=== PATIENT | female | born 1935 | race Caucasian/White ===

== ENCOUNTER 2016-07-10 15:40 | Outpatient (CLI) | payer OTHER, MEDICAID ==
[~2016-07-10 15:40] MED LIST: AMLO10TA88 PO; ASPI325T2 PO; LISI-600 PO; METO25TA6 PO; NITRO; OMEP20CA10 PO
[2016-07-10 16:23] LABS: BILIRUBIN,URINE NEGATIVE (NEGATIVE); CLARITY/URINE SL HAZY (CLEAR); COLOR,URINE YELLOW (YELLOW); GLUCOSE,URINE NEGATIVE (NEGATIVE); KETONES,URINE NEGATIVE (NEGATIVE); LEUKOCYTE ESTERASE ,URINE 1+ (NEGATIVE); NITRITE, URINE NEGATIVE (NEGATIVE); PROTEIN URINE NEGATIVE (NEGATIVE); UROBILINOGEN,URINE 0.2 (0.2-1.0)
[2016-07-10 16:56] LABS: BLOOD, URINE TRACE (NEGATIVE)
[2016-07-10 17:11] LABS: RBC,URINE NONE SEEN /HPF (0-3)
[2016-07-10 17:13] LABS: BACTERIA,URINE MANY /HPF (None Seen); MUCUS,URINE None Seen /LPF (None Seen)
== END 2016-07-10 16:30 | disposition home or self-care (01) ==
LOC: SLB 15:40
PROVIDERS: ATTEND Internal Medicine
DX: N39.0 Urinary tract infection, site not specified (principal)
CPT/HCPCS: 81000-TC; 87086

== ENCOUNTER 2017-07-15 09:52 | Outpatient (CLI) | payer OTHER, MEDICAID | END 2017-07-15 19:32 | disposition home or self-care (01) | LOC: SLB 09:52 | PROVIDERS: ATTEND Internal Medicine | DX: N39.0 Urinary tract infection, site not specified (principal) | CPT/HCPCS: 87086; 87186-TC ==

== ENCOUNTER 2017-10-29 09:42 | Outpatient (CLI) | payer OTHER, MEDICAID ==
[~2017-10-29 09:42] MED LIST changes: +ASPI-858 PO; -ASPI325T2 PO
== END 2017-10-29 19:09 | disposition home or self-care (01) ==
LOC: SRD 09:42
PROVIDERS: ATTEND Internal Medicine
DX: M47.897 Other spondylosis, lumbosacral region (principal); M41.86 Other forms of scoliosis, lumbar region; M48.061 Spinal stenosis, lumbar region without neurogenic claudication; I70.0 Atherosclerosis of aorta; I70.293 Other atherosclerosis of native arteries of extremities, bilateral legs; I10 Essential (primary) hypertension
CPT/HCPCS: 72110; 93923

== ENCOUNTER 2019-01-05 15:22 | Inpatient (IN) | payer OTHER, MEDICAID ==
[~2019-01-05] VITALS: Ht 157.5 cm; Wt 73.0 kg
[~2019-01-05 15:22] MED LIST changes: -OMEP20CA10 PO; +OMEP20CA11 PO
[2019-01-05] MEDS ORDERED: NACL 0.9% 1,000 ML IV ONE ×2 (15:30→17:30)
[2019-01-05] MEDS ORDERED: ACETAMINOPHEN 500 MG TABLET PO ONE (15:30)
[2019-01-05] MEDS ORDERED: ONDANSETRON HCL 4 MG/2 ML VIAL IVP ONE ×2 (15:45→18:30)
[2019-01-05 16:53] LABS: BASOPHILS % (AUTO) 0.2 % (0.0-2.0); EOSINOPHILS % (AUTO) 0.2 % (0.0-4.0); HEMATOCRIT 36.7 % (36-48); HEMOGLOBIN 11.8 g/dL (12.0-16.0); LYMPHOCYTES # (AUTO) 0.2 K/uL (1.0-5.5); LYMPHOCYTES % (AUTO) 4.7 % (20.5-51.5); MEAN CORPUSCULAR HEMOGLOBIN 29 pg (27-31); MEAN CORPUSCULAR HGB CONC 32 % (32-36); MEAN CORPUSCULAR VOLUME 89 fL (79.0-98.0); MONOCYTES % (AUTO) 0.5 % (1.7-9.3); NEUTROPHILS # (AUTO) 4.5 K/uL (1.8-7.7); NEUTROPHILS % (AUTO) 94.4 % (40.0-70.0); PLATELET COUNT (AUTO) 135 K/uL (130-430); RED BLOOD CELL COUNT(AUTO) 4.13 MIL/uL (4.2-6.2); RED CELL DISTRIBUTION WIDTH 22.3 % (9.0-15.0); WHITE BLOOD COUNT (AUTO) 4.8 K/uL (4.8-10.8)
[2019-01-05 17:05] LABS: ANION GAP 11 (5-15); CALCIUM 8.3 mg/dL (8.4-11.0); CHLORIDE 109 mmol/L (98-107); CREATININE 1.59 mg/dL (0.55-1.30); GLUCOSE 109 mg/dL (70-99); POTASSIUM 3.9 mmol/L (3.5-5.1); SODIUM SERUM 141 mmol/L (136-145); UREA NITROGEN, BLOOD 26 mg/dL (8-21)
[2019-01-05 17:16] LABS: ALANINE AMINOTRANSFERASE 20 U/L (12-78); ALBUMIN 3.1 g/dL (3.4-4.8); ASPARTATE AMINOTRANSFERASE 27 U/L (10-37); TOTAL BILIRUBIN 0.5 mg/dL (0.0-1.0)
[2019-01-05 17:58] LABS: BILIRUBIN,URINE NEGATIVE (NEGATIVE); BLOOD, URINE 2+ (NEGATIVE); CLARITY/URINE CLOUDY (CLEAR); COLOR,URINE YELLOW (YELLOW); GLUCOSE,URINE NEGATIVE (NEGATIVE); KETONES,URINE NEGATIVE (NEGATIVE); LEUKOCYTE ESTERASE ,URINE 3+ (NEGATIVE); NITRITE, URINE NEGATIVE (NEGATIVE); PH,URINE 5.5 (5.0-8.0); PROTEIN URINE 1+ (NEGATIVE); UROBILINOGEN,URINE 0.2 (0.2-1.0)
[2019-01-05 18:28] LABS: BACTERIA,URINE MANY /HPF (None Seen); MUCUS,URINE None Seen /LPF (None Seen); WBC,URINE >100 /HPF (0-3)
[2019-01-05] MEDS ORDERED: ASPIRIN 325 MG TABLET PO ONE (18:30)
[2019-01-05] MEDS ORDERED: MORPHINE 4 MG/ML INJ. SYRINGE IVP ONE (18:30)
[2019-01-05] MEDS ORDERED: cefTRIAXone 1 GM IVPB PREMIX 50 ML IV ONE (18:30)
[2019-01-05] MEDS ORDERED: PROPOFOL 200MG/ 20ML VIAL (DIPRIVAN) IV ONE (19:30)
[2019-01-05] MEDS ORDERED: fentaNYL CITRATE/PF 100 MCG/2 ML AMP IVP ONE (19:30)
[2019-01-05] MEDS ORDERED: LR 1,000 ML IV.SOLN IV ONE (19:30)
[2019-01-05] MEDS ORDERED: SEVOFLURANE 15 MIN GAS INH ONE (19:30)
[2019-01-05] MEDS ORDERED: MIDAZOLAM HCL 5 MG/5 ML VIAL IVP ONE (19:30)
[2019-01-05] MEDS ORDERED: NS IRRIG SOLN 1000 ML IR ONE (19:30)
[2019-01-05 19:41] VITALS: BP_SYST 109
[2019-01-05] MEDS ORDERED: FLU VACC TS2019(65UP)/MF59C/PF 45 MCG/0.5 ML SYRINGE I.M. PRN (20:15)
[2019-01-05] MEDS ORDERED: LEVOFLOXACIN 250 MG/D5W 50 ML IV SCH (21:45)
[2019-01-05] MEDS ORDERED: OSELTAMIVIR PHOSPHATE 75 MG CAPSULE PO ONE (21:45)
[2019-01-05] MEDS ORDERED: ACETAMINOPHEN 650 MG SUPP.RECT RC PRN (22:00)
[2019-01-05] MEDS ORDERED: ZOLPIDEM TARTRATE 5 MG TABLET PO PRN (22:00)
[2019-01-05] MEDS ORDERED: PANTOPRAZOLE SODIUM 40 MG/VIAL (PROTONIX) IVP SCH (22:00)
[2019-01-05] MEDS ORDERED: ENOXAPARIN SODIUM 40 MG/0.4 ML SYRINGE SUBCUT ONE (22:15)
[2019-01-05] MEDS ORDERED: LEVOFLOXACIN 250 MG/D5W 50 ML IV ONE (22:20)
[2019-01-05] MEDS ORDERED: *HEPARIN PER PHARMACY XX ONE (23:15)
[2019-01-05 23:16] LABS: PROTHROMBIN TIME 10.4 SECS (9.5-12.5)
[2019-01-05] MEDS: NACL 0.9% 1,000 ML IV SCH (23:24)
[2019-01-06 00:03] VITALS: BP_SYST 95
[2019-01-06] MEDS ORDERED: *HEPARIN PER PHARMACY XX PRN (01:00)
[2019-01-06] MEDS: traMADol HCL HCL 50 MG TABLET (ULTRAM) PO PRN (01:15)
[2019-01-06] MEDS ORDERED: HEPARIN SODIUM,PORCINE 5000 UNITS/ML VIAL IV SCH (02:00)
[2019-01-06] MEDS: HEPARIN 25,000 UNITS/D5W 250mL PREMIX IV PRN ×3 (02:07→16:02)
[2019-01-06] MEDS: NACL 0.9% 1,000 ML IV SCH ×3 (05:03→17:46)
[2019-01-06] MEDS ORDERED: HEPARIN SODIUM,PORCINE 3000 UNITS/0.6 ML BOLUS IVP PRN (07:00)
[2019-01-06] MEDS ORDERED: HEPARIN SODIUM,PORCINE 2000 UNITS/0.4 ML BOLUS IVP PRN (07:00)
[2019-01-06 08:00] VITALS: BP_SYST 86
[2019-01-06 08:28] LABS: HEMATOCRIT 30.9 % (36-48); HEMOGLOBIN 10.1 g/dL (12.0-16.0); MEAN CORPUSCULAR HEMOGLOBIN 28 pg (27-31); MEAN CORPUSCULAR HGB CONC 33 % (32-36); MEAN CORPUSCULAR VOLUME 87 fL (79.0-98.0); PLATELET COUNT (AUTO) 133 K/uL (130-430); RED BLOOD CELL COUNT(AUTO) 3.56 MIL/uL (4.2-6.2); RED CELL DISTRIBUTION WIDTH 22.5 % (9.0-15.0); WHITE BLOOD COUNT (AUTO) 28.9 K/uL (4.8-10.8)
[2019-01-06] MEDS: PANTOPRAZOLE SODIUM 40 MG/VIAL (PROTONIX) IVP SCH (08:43)
[2019-01-06] MEDS: ASPIRIN 325 MG TABLET PO SCH (08:44)
[2019-01-06] MEDS: LISINOPRIL 20 MG TABLET PO SCH (08:46)
[2019-01-06 08:51] LABS: ALANINE AMINOTRANSFERASE 39 U/L (12-78); ALBUMIN 2.2 g/dL (3.4-4.8); ANION GAP 6 (5-15); ASPARTATE AMINOTRANSFERASE 45 U/L (10-37); CALCIUM 7.2 mg/dL (8.4-11.0); CHLORIDE 111 mmol/L (98-107); CHOLESTEROL 128 mg/dL (<200); CREATININE 1.44 mg/dL (0.55-1.30); GLUCOSE 107 mg/dL (70-99); HDL CHOLESTEROL 45 mg/dL (>55); LDL CHOLESTEROL 81 mg/dL (<100); LIPASE 92 U/L (73-393); POTASSIUM 4.2 mmol/L (3.5-5.1); SODIUM SERUM 137 mmol/L (136-145); TOTAL BILIRUBIN 0.5 mg/dL (0.0-1.0); TRIGLYCERIDES 29 mg/dL (30-150); UREA NITROGEN, BLOOD 28 mg/dL (8-21)
[2019-01-06] MEDS ORDERED: PANTOPRAZOLE SODIUM 40 MG TAB PO SCH (09:00)
[2019-01-06] MEDS ORDERED: OSELTAMIVIR PHOSPHATE 75 MG CAPSULE PO SCH (09:00)
[2019-01-06] MEDS ORDERED: cefTRIAXone 1 GM in D5W 50 ML IV SCH ×2 (09:00→21:00)
[2019-01-06 10:06] LABS: BAND % (MANUAL) 33 % (0-6); BASOPHILS % (MANUAL) 0 % (0-2); EOSINOPHILS % (MANUAL) 0 % (0-7); LYMPHOCYTES % (MANUAL) 5 % (20-46); METAMYELOCYTES % 3 % (0-0); MONOCYTES % (MANUAL) 5 % (0-11); MYELOCYTES % 1 % (0-0)
[2019-01-06] MEDS ORDERED: NACL 0.9% 1,000 ML IV ONE (11:15)
[2019-01-06 12:00] VITALS: BP_SYST 85
[2019-01-06 12:06] LABS: ANION GAP 10 (5-15); CALCIUM 7.3 mg/dL (8.4-11.0); CHLORIDE 110 mmol/L (98-107); CREATININE 1.39 mg/dL (0.55-1.30); GLUCOSE 109 mg/dL (70-99); POTASSIUM 4.2 mmol/L (3.5-5.1); SODIUM SERUM 141 mmol/L (136-145); UREA NITROGEN, BLOOD 28 mg/dL (8-21)
[2019-01-06 12:21] LABS: TOTAL IRON BIND. CAPACITY 207 ug/dL (250-450)
[2019-01-06] MEDS ORDERED: GENTAMICIN 80 MG/50 ML IV ONE (13:15)
[2019-01-06] MEDS ORDERED: NS IV ONE (13:15)
[2019-01-06] MEDS ORDERED: TAMSULOSIN HCL 0.4 MG CAP PO ONE (13:30)
[2019-01-06 15:38] VITALS: BP_SYST 94
[2019-01-06 17:06] VITALS: BP_SYST 111
[2019-01-06] MEDS ORDERED: fentaNYL CITRATE/PF 100 MCG/2 ML AMP IVP PRN ×2 (20:15)
[2019-01-06] MEDS ORDERED: ONDANSETRON HCL 4 MG/2 ML VIAL IVP PRN (20:15)
[2019-01-06] MEDS ORDERED: ENOXAPARIN SODIUM 40 MG/0.4 ML SYRINGE SUBCUT SCH (21:00)
[2019-01-06] MEDS: METOPROLOL TARTRATE 25 MG TABLET PO SCH (21:00)
[2019-01-06] MEDS: TAMSULOSIN HCL 0.4 MG CAP PO SCH (21:00)
[2019-01-06 21:25] VITALS: BP_SYST 107
[2019-01-06] MEDS: MEROPENEM 1 GM in NS 100 ML IV SCH (22:28)
[2019-01-07] MEDS: NACL 0.9% 1,000 ML IV SCH ×4 (00:26→20:24)
[2019-01-07 08:00] VITALS: BP_SYST 118
[2019-01-07] MEDS: TAMSULOSIN HCL 0.4 MG CAP PO SCH ×2 (08:19→20:25)
[2019-01-07] MEDS: ASPIRIN 325 MG TABLET PO SCH (08:19)
[2019-01-07] MEDS: PANTOPRAZOLE SODIUM 40 MG/VIAL (PROTONIX) IVP SCH (08:19)
[2019-01-07] MEDS: traMADol HCL HCL 50 MG TABLET (ULTRAM) PO PRN ×2 (08:19→15:26)
[2019-01-07] MEDS: MEROPENEM 1 GM in NS 100 ML IV SCH ×2 (08:23→20:25)
[2019-01-07] MEDS: LISINOPRIL 20 MG TABLET PO SCH (09:00)
[2019-01-07 09:25] LABS: HEMATOCRIT 29.7 % (36-48); HEMOGLOBIN 9.7 g/dL (12.0-16.0); MEAN CORPUSCULAR HEMOGLOBIN 29 pg (27-31); MEAN CORPUSCULAR HGB CONC 33 % (32-36); MEAN CORPUSCULAR VOLUME 87 fL (79.0-98.0); RED BLOOD CELL COUNT(AUTO) 3.41 MIL/uL (4.2-6.2); RED CELL DISTRIBUTION WIDTH 23.2 % (9.0-15.0); WHITE BLOOD COUNT (AUTO) 13.7 K/uL (4.8-10.8)
[2019-01-07 09:50] LABS: ALANINE AMINOTRANSFERASE 24 U/L (12-78); ALBUMIN 2.3 g/dL (3.4-4.8); ANION GAP 5 (5-15); ASPARTATE AMINOTRANSFERASE 26 U/L (10-37); CALCIUM 7.5 mg/dL (8.4-11.0); CHLORIDE 113 mmol/L (98-107); CREATININE 1.14 mg/dL (0.55-1.30); GLUCOSE 96 mg/dL (70-99); PHOSPHORUS 2.2 mg/dL (2.7-4.5); POTASSIUM 4.2 mmol/L (3.5-5.1); SODIUM SERUM 141 mmol/L (136-145); TOTAL BILIRUBIN 0.3 mg/dL (0.0-1.0); UREA NITROGEN, BLOOD 15 mg/dL (8-21)
[2019-01-07] MEDS: METOPROLOL TARTRATE 25 MG TABLET PO SCH ×2 (09:52→20:25)
[2019-01-07 10:09] LABS: PLATELET COUNT (AUTO) 108 K/uL (130-430)
[2019-01-07] MEDS ORDERED: MULTIVITAMINS TAB 1 TABLET PO ONE (11:30)
[2019-01-07] MEDS ORDERED: NAPH,MB-DB/K PH,MBDB 250 MG TAB PO ONE (11:30)
[2019-01-07 12:00] VITALS: BP_SYST 106
[2019-01-07] MEDS: SOD FERRIC GLUC COMPLEX/SUC 125 MG in NS 100 ML IV SCH (13:22)
[2019-01-07] MEDS: BISACODYL 5 MG TABLET.DR (DULCOLAX) PO PRN (15:26)
[2019-01-07 17:12] VITALS: BP_SYST 111
[2019-01-07 20:15] VITALS: BP_SYST 125
[2019-01-08] VITALS: BP_SYST 143
[2019-01-08] MEDS: NACL 0.9% 1,000 ML IV SCH ×2 (03:06→09:46)
[2019-01-08 07:59] LABS: BASOPHILS # (AUTO) 0.1 K/uL (0.0-0.2); BASOPHILS % (AUTO) 0.5 % (0.0-2.0); EOSINOPHILS # (AUTO) 0.2 K/uL (0.0-0.4); HEMATOCRIT 29.9 % (36-48); HEMOGLOBIN 10.1 g/dL (12.0-16.0); LYMPHOCYTES # (AUTO) 1.2 K/uL (1.0-5.5); LYMPHOCYTES % (AUTO) 11.7 % (20.5-51.5); MEAN CORPUSCULAR HEMOGLOBIN 29 pg (27-31); MEAN CORPUSCULAR HGB CONC 34 % (32-36); MEAN CORPUSCULAR VOLUME 87 fL (79.0-98.0); MONOCYTES # (AUTO) 0.5 K/uL (0.0-1.0); MONOCYTES % (AUTO) 4.7 % (1.7-9.3); NEUTROPHILS # (AUTO) 8.5 K/uL (1.8-7.7); NEUTROPHILS % (AUTO) 81.1 % (40.0-70.0); PLATELET COUNT (AUTO) 111 K/uL (130-430); RED BLOOD CELL COUNT(AUTO) 3.45 MIL/uL (4.2-6.2); WHITE BLOOD COUNT (AUTO) 10.5 K/uL (4.8-10.8)
[2019-01-08 08:00] VITALS: BP_SYST 140
[2019-01-08 08:25] LABS: ALANINE AMINOTRANSFERASE 27 U/L (12-78); ALBUMIN 2.3 g/dL (3.4-4.8); ANION GAP 6 (5-15); ASPARTATE AMINOTRANSFERASE 25 U/L (10-37); CALCIUM 7.9 mg/dL (8.4-11.0); CHLORIDE 113 mmol/L (98-107); CREATININE 0.84 mg/dL (0.55-1.30); GLUCOSE 84 mg/dL (70-99); POTASSIUM 4.4 mmol/L (3.5-5.1); SODIUM SERUM 141 mmol/L (136-145); TOTAL BILIRUBIN 0.3 mg/dL (0.0-1.0); UREA NITROGEN, BLOOD 10 mg/dL (8-21)
[2019-01-08] MEDS: BISACODYL 5 MG TABLET.DR (DULCOLAX) PO PRN (08:29)
[2019-01-08] MEDS: ASPIRIN 325 MG TABLET PO SCH (08:29)
[2019-01-08] MEDS: TAMSULOSIN HCL 0.4 MG CAP PO SCH ×2 (08:30→21:27)
[2019-01-08] MEDS: traMADol HCL HCL 50 MG TABLET (ULTRAM) PO PRN (08:30)
[2019-01-08] MEDS: PANTOPRAZOLE SODIUM 40 MG/VIAL (PROTONIX) IVP SCH (08:30)
[2019-01-08] MEDS: METOPROLOL TARTRATE 25 MG TABLET PO SCH ×2 (08:31→21:28)
[2019-01-08] MEDS: MEROPENEM 1 GM in NS 100 ML IV SCH ×2 (08:56→21:28)
[2019-01-08] MEDS ORDERED: LISINOPRIL 20 MG TABLET PO ONE (11:15)
[2019-01-08] MEDS ORDERED: FUROSEMIDE 20 MG/2 ML VIAL IVP ONE (11:30)
[2019-01-08] MEDS: SOD FERRIC GLUC COMPLEX/SUC 125 MG in NS 100 ML IV SCH (12:18)
[2019-01-08 12:33] VITALS: BP_SYST 143
[2019-01-08 16:00] VITALS: BP_SYST 149
[2019-01-08 23:45] VITALS: BP_SYST 138
[2019-01-09] MEDS: traMADol HCL HCL 50 MG TABLET (ULTRAM) PO PRN ×4 (01:25→20:21)
[2019-01-09 07:00] VITALS: BP_SYST 148
[2019-01-09] MEDS: PANTOPRAZOLE SODIUM 40 MG/VIAL (PROTONIX) IVP SCH (09:31)
[2019-01-09] MEDS: TAMSULOSIN HCL 0.4 MG CAP PO SCH ×2 (09:31→20:16)
[2019-01-09] MEDS: MEROPENEM 1 GM in NS 100 ML IV SCH (09:31)
[2019-01-09] MEDS: BISACODYL 5 MG TABLET.DR (DULCOLAX) PO PRN (09:32)
[2019-01-09] MEDS: METOPROLOL TARTRATE 25 MG TABLET PO SCH ×2 (09:33→20:17)
[2019-01-09] MEDS: ASPIRIN 325 MG TABLET PO SCH (09:33)
[2019-01-09] MEDS: LISINOPRIL 20 MG TABLET PO SCH (09:34)
[2019-01-09 11:11] VITALS: BP_SYST 148
[2019-01-09 12:00] VITALS: BP_SYST 140
[2019-01-09] MEDS ORDERED: PIPERACILLIN/TAZO 3.375/DEX-IS 50 ML IV SCH (12:00)
[2019-01-09] MEDS: SOD FERRIC GLUC COMPLEX/SUC 125 MG in NS 100 ML IV SCH (12:33)
[2019-01-09 16:00] VITALS: BP_SYST 130
[2019-01-09 20:00] VITALS: BP_SYST 128
[2019-01-10] VITALS: BP_SYST 132
[2019-01-10 07:23] LABS: BASOPHILS % (AUTO) 0.7 % (0.0-2.0); EOSINOPHILS # (AUTO) 0.2 K/uL (0.0-0.4); EOSINOPHILS % (AUTO) 3.6 % (0.0-4.0); HEMATOCRIT 29.6 % (36-48); LYMPHOCYTES # (AUTO) 1.5 K/uL (1.0-5.5); LYMPHOCYTES % (AUTO) 21.9 % (20.5-51.5); MEAN CORPUSCULAR HEMOGLOBIN 29 pg (27-31); MEAN CORPUSCULAR HGB CONC 34 % (32-36); MEAN CORPUSCULAR VOLUME 85 fL (79.0-98.0); MONOCYTES # (AUTO) 0.8 K/uL (0.0-1.0); MONOCYTES % (AUTO) 12.2 % (1.7-9.3); NEUTROPHILS # (AUTO) 4.2 K/uL (1.8-7.7); NEUTROPHILS % (AUTO) 61.6 % (40.0-70.0); PLATELET COUNT (AUTO) 148 K/uL (130-430); RED BLOOD CELL COUNT(AUTO) 3.48 MIL/uL (4.2-6.2); RED CELL DISTRIBUTION WIDTH 22.6 % (9.0-15.0); RETICULOCYTE COUNT 0.9 % (0.5-1.5); WHITE BLOOD COUNT (AUTO) 6.8 K/uL (4.8-10.8)
[2019-01-10 07:48] LABS: ANION GAP 6 (5-15); CALCIUM 8.5 mg/dL (8.4-11.0); CHLORIDE 108 mmol/L (98-107); CREATININE 0.71 mg/dL (0.55-1.30); GLUCOSE 92 mg/dL (70-99); POTASSIUM 3.6 mmol/L (3.5-5.1); SODIUM SERUM 139 mmol/L (136-145); UREA NITROGEN, BLOOD 9 mg/dL (8-21)
[2019-01-10] MEDS: PANTOPRAZOLE SODIUM 40 MG/VIAL (PROTONIX) IVP SCH (09:53)
[2019-01-10] MEDS: ASPIRIN 325 MG TABLET PO SCH (09:56)
[2019-01-10] MEDS: LISINOPRIL 20 MG TABLET PO SCH (09:56)
[2019-01-10] MEDS: traMADol HCL HCL 50 MG TABLET (ULTRAM) PO PRN (09:56)
[2019-01-10] MEDS: METOPROLOL TARTRATE 25 MG TABLET PO SCH (09:57)
[2019-01-10] MEDS: TAMSULOSIN HCL 0.4 MG CAP PO SCH (09:57)
[2019-01-10] MEDS: SOD FERRIC GLUC COMPLEX/SUC 125 MG in NS 100 ML IV SCH (12:05)
[2019-01-10 13:04] VITALS: BP_SYST 134
[2019-01-10] MEDS ORDERED: CEPH-568 PO (16:00)
[2019-01-10 16:30] VITALS: BP_SYST 133
== END 2019-01-10 17:00 | disposition home or self-care (01) | DRG 853 ==
LOC: SED 15:22 → STU 18:26
PROVIDERS: ADMIT Internal Medicine; ATTEND Internal Medicine
PROC: 0T778DZ Dilation of Left Ureter with Intraluminal Device, Via Natural or Artificial Opening Endoscopic (ICD-10-PCS; principal; 2019-01-06 19:00)
DX: A41.50 Gram-negative sepsis, unspecified (principal); I21.A1 Myocardial infarction type 2; N17.0 Acute kidney failure with tubular necrosis; N10 Acute pyelonephritis; E78.5 Hyperlipidemia, unspecified; I12.9 Hypertensive chronic kidney disease with stage 1 through stage 4 chronic kidney disease, or unspecified chronic kidney disease; I25.10 Atherosclerotic heart disease of native coronary artery without angina pectoris; I44.7 Left bundle-branch block, unspecified; N18.9 Chronic kidney disease, unspecified; N81.10 Cystocele, unspecified; K21.9 Gastro-esophageal reflux disease without esophagitis; N20.0 Calculus of kidney; K44.9 Diaphragmatic hernia without obstruction or gangrene; B96.1 Klebsiella pneumoniae [K. pneumoniae] as the cause of diseases classified elsewhere; K80.20 Calculus of gallbladder without cholecystitis without obstruction; E86.0 Dehydration; Z87.442 Personal history of urinary calculi; Z88.5 Allergy status to narcotic agent; Z79.899 Other long term (current) drug therapy; Z79.82 Long term (current) use of aspirin; Z88.8 Allergy status to other drugs, medicaments and biological substances
CPT/HCPCS: 36415; 70450-TC; 71045; 76000; 80048; 80053; 80061; 81000-TC; 83540-TC; 83550-TC; 83605; 83690-TC; 83735-TC; 84100-TC; 84484; 84550-TC; 85007; 85025; 85027; 85044-TC; 85610-TC; 85730-TC; 86710; 87040-TC; 87081; 87086; 87186-TC; 93005; 93306; 94010; 94760; 96361; 96365; 96375; 96376; 97116-GP; 97530-GP; 99291; C1758; C1769; C2625; C9113; G0378; G9035; J0696; J1580; J1644; J1940; J1956; J2185; J2250; J2270; J2405; J2704; J2916; J3010; J7030; J7060; J7120

== ENCOUNTER 2020-11-30 09:55 | Outpatient (CLI) | payer OTHER, MEDICAID ==
[~2020-11-30 09:55] MED LIST changes: -AMLO10TA88 PO; +CEPH-568 PO; -LISI-600 PO; +LISI20TA30 PO; -OMEP20CA11 PO; +OMEP20CA15 PO
[2020-11-30 10:25] LABS: BILIRUBIN,URINE NEGATIVE (NEGATIVE); COLOR,URINE YELLOW (YELLOW); GLUCOSE,URINE NEGATIVE (NEGATIVE); KETONES,URINE NEGATIVE (NEGATIVE); LEUKOCYTE ESTERASE ,URINE TRACE (NEGATIVE); NITRITE, URINE NEGATIVE (NEGATIVE); PROTEIN URINE NEGATIVE (NEGATIVE); UROBILINOGEN,URINE 0.2 (0.2-1.0)
[2020-11-30 10:39] LABS: BLOOD, URINE TRACE (NEGATIVE); CLARITY/URINE SLIGHTLY HAZY (CLEAR)
[2020-11-30 10:44] LABS: BACTERIA,URINE FEW /HPF (None Seen); MUCUS,URINE 1+ /LPF (None Seen); RBC,URINE 0-3 /HPF (0-3); WBC,URINE 0-3 /HPF (0-3)
== END 2020-11-30 15:23 | disposition home or self-care (01) ==
LOC: SLB 09:55
PROVIDERS: ATTEND Internal Medicine
DX: N39.0 Urinary tract infection, site not specified (principal)
CPT/HCPCS: 81000; 87086

== ENCOUNTER 2021-02-07 10:01 | Emergency (ER) | payer OTHER, MEDICAID ==
[~2021-02-07] VITALS: Ht 157.5 cm; Wt 68.5 kg
[2021-02-07 10:20] VITALS: BP_SYST 150
--- NOTE | 2021-02-07 10:20 | NUR ---
BROUGHT BACK TO BED #4 AND TRIAGED. REPORT GIVEN TO ELZA
--- NOTE | 2021-02-07 10:33 | NUR ---
PT COMES TO ER FROM HOME WITH REPORTS OF SUDDEN ONSET ON DIZZINESS AND LIGHTHEADED AT APPROX 0300. RESP EVENE AND UNLABORED, ON RA @98%. DENIES ANY TRAUMA. NO CHANGES IN VISION. DOES REPORT [id number] IN SENSATION 4/10. NO NEURO DEFICITS NOTED. SPEAKING FULL CLEAR SENTENCES.NO FACIAL DROOP NOTED. SAFETY PRECAUTIONS IN PLACE. WILL CONT TO MONITOR.
--- NOTE | 2021-02-07 11:25 | NUR ---
DR DAVIDSON IN ROOM FOR EXAM
[2021-02-07 11:45] LABS: BASOPHILS % (AUTO) 0.9 % (0.0-2.0); EOSINOPHILS # (AUTO) 0.1 K/uL (0.0-0.4); EOSINOPHILS % (AUTO) 1.2 % (0.0-4.0); HEMATOCRIT 37.7 % (36-48); HEMOGLOBIN 12.4 g/dL (12.0-16.0); LYMPHOCYTES # (AUTO) 1.3 K/uL (1.0-5.5); LYMPHOCYTES % (AUTO) 26.5 % (20.5-51.5); MEAN CORPUSCULAR HEMOGLOBIN 28 pg (27-31); MEAN CORPUSCULAR HGB CONC 33 % (32-36); MEAN CORPUSCULAR VOLUME 86 fL (79.0-98.0); MONOCYTES # (AUTO) 0.4 K/uL (0.0-1.0); MONOCYTES % (AUTO) 7.2 % (1.7-9.3); NEUTROPHILS # (AUTO) 3.2 K/uL (1.8-7.7); NEUTROPHILS % (AUTO) 64.2 % (40.0-70.0); PLATELET COUNT (AUTO) 227 K/uL (130-430); RED BLOOD CELL COUNT(AUTO) 4.38 MIL/uL (4.2-6.2); RED CELL DISTRIBUTION WIDTH 14.1 % (9.0-15.0); WHITE BLOOD COUNT (AUTO) 5.1 K/uL (4.8-10.8)
[2021-02-07] MEDS ORDERED: IOHEXOL 350 mgI/mL, 150 ML INFUS..BTL IV ONE (12:29)
--- NOTE | 2021-02-07 12:38 | NUR ---
PT WITH EYES CLOSED, IN NAD. RES EVEN AND UNLABORED, REPRTS FEELING BETTER. WALKED TO BATHROOM WITH STANDBY ASSIST, URINE COLLECTED. VSS.
--- NOTE | 2021-02-07 12:45 | NUR ---
PT BACK FROM CT SCAN VIA W/C.
[2021-02-07 13:27] LABS: ANION GAP 10 (5-15); CALCIUM 8.9 mg/dL (8.4-11.0); CHLORIDE 106 mmol/L (98-107); CREATININE 0.86 mg/dL (0.55-1.30); GLUCOSE 105 mg/dL (70-99); POTASSIUM 4.2 mmol/L (3.5-5.1); SODIUM SERUM 139 mmol/L (136-145); UREA NITROGEN, BLOOD 12 mg/dL (8-21)
[2021-02-07 13:35] LABS: ALANINE AMINOTRANSFERASE 25 U/L (12-78); ALBUMIN 3.4 g/dL (3.4-4.8); ASPARTATE AMINOTRANSFERASE 24 U/L (10-37); TOTAL BILIRUBIN 0.3 mg/dL (0.0-1.0)
--- NOTE | 2021-02-07 14:19 | NUR ---
PT C/O HEADACHE, 07/20. DR DAVIDSON INFORMED. PT ABLE TO DRINK WATER WELL WITHOIT ANY DIFFICULTIES. NO COUGH OR DROOLOING NOTED.
[2021-02-07] MEDS ORDERED: ACETAMINOPHEN 500 MG TABLET PO ONE (14:30)
--- NOTE | 2021-02-07 15:35 | NUR ---
patient accompanied to the restroom to void. patient tolerated well
--- NOTE | 2021-02-07 16:41 | NUR ---
NO ACUTE CHNAGES IN CONDITION, PT SITTING UP IN BED, IN NAD. VSS. WATER PROVIDED.
--- NOTE | 2021-02-07 16:49 | NUR ---
UNABLE TO ACCEPT PT AND THINKS ITS BEST TO ADMIT PT. SPOKE TO EMI RAZO DR.
--- NOTE | 2021-02-07 17:24 | NUR ---
DINNER TRAY OFFERED, TOLERATD WELL.
--- NOTE | 2021-02-07 19:08 | NUR ---
NO ACUTE CHNAGES IN CONDITION, PT IN NAD. RESP EVEN AND UNLABORED, VSS.
--- NOTE | 2021-02-07 19:32 | NUR ---
DTRA T BEDSIDE, BBEDSIDE COMMODE OFFERED FOR ACCEBILITY TO USE BATHROOM. STEADY GAIT WITH STANDBY ASSIST.
--- NOTE | 2021-02-07 19:49 | NUR ---
DR ROSAS TALKING WITH [facility], REPORTS SHE HAS CAROTID OCCULSION.
--- NOTE | 2021-02-07 19:50 | NUR ---
Dr. Pimentel on the phone with transfer center MD Fernandez, to give report on PT to accept to [facility].
[2021-02-07] MEDS ORDERED: ASPIRIN 325 MG TABLET (ECOTRIN) PO ONE (20:00)
--- NOTE | 2021-02-07 21:10 | NUR ---
Pt report received. Pt AAOx4, denies c/o pain or discomfort, no needs verbalized at this time. Daughter present to bedside. VSS, ABBY.
--- NOTE | 2021-02-07 22:45 | NUR ---
PIV RAC and LFA painful to NS flush. PIVs D/C with angiocath tips intact, pressure dsg applied, bleeding controlled.
--- NOTE | 2021-02-07 22:50 | NUR ---
# 20 gauge angiocath placed to LAC. Use of asceptic technique. Opsite placed over site. Blood return noted. Flushed with 10 cc of normal saline. No evidence of infiltration noted. Patient tolerated well.
[2021-02-07 23:03] VITALS: BP_SYST 147
--- NOTE | 2021-02-07 23:05 | NUR ---
Patient to be transferred to [facility]. Is being transferred due to higher level of care. Receiving facility has accepting physician and available space. ER physician has signed transfer form. Patient or responsible democrat has agreed to transfer and signed form. Patient belongings inventoried and will be sent with patient. Copy of nursing notes, lab reports, EKG, Physicians Orders and X-rays to be sent with patient. Report called to KAMERON Henry at receiving facility. Receiving physician is Dr. Ledesma. Pt leaves via stretcher in stable condition via [facility].
== END 2021-02-07 23:03 | disposition short-term general hospital (02) ==
LOC: SED 10:01
DX: R42 Dizziness and giddiness (principal); R07.89 Other chest pain; I10 Essential (primary) hypertension; Z88.5 Allergy status to narcotic agent; Z79.899 Other long term (current) drug therapy; Z20.822 Contact with and (suspected) exposure to COVID-19
CPT/HCPCS: 36415; 70450; 70496; 70498; 71045; 76376; 80053; 84484; 85025; 87426; 93005; 99285; Q9967

== ENCOUNTER 2021-12-06 12:30 | Outpatient (CLI) | payer OTHER, MEDICAID | END 2021-12-06 18:52 | disposition home or self-care (01) | LOC: SUS 12:30 | PROVIDERS: ATTEND Internal Medicine | DX: N32.89 Other specified disorders of bladder (principal); R31.9 Hematuria, unspecified | CPT/HCPCS: 76770 ==

== ENCOUNTER 2021-12-27 11:13 | Outpatient (CLI) | payer OTHER, MEDICAID ==
[2021-12-27 11:43] LABS: BASOPHILS % (AUTO) 0.7 % (0.0-2.0); EOSINOPHILS # (AUTO) 0.1 K/uL (0.0-0.4); EOSINOPHILS % (AUTO) 1.7 % (0.0-4.0); HEMOGLOBIN 11.2 g/dL (12.0-16.0); LYMPHOCYTES # (AUTO) 1.7 K/uL (1.0-5.5); MEAN CORPUSCULAR HEMOGLOBIN 31 pg (27-31); MEAN CORPUSCULAR HGB CONC 34 % (32-36); MEAN CORPUSCULAR VOLUME 92 fL (79.0-98.0); MONOCYTES # (AUTO) 0.6 K/uL (0.0-1.0); MONOCYTES % (AUTO) 8.4 % (1.7-9.3); NEUTROPHILS # (AUTO) 4.4 K/uL (1.8-7.7); NEUTROPHILS % (AUTO) 64.2 % (40.0-70.0); PLATELET COUNT (AUTO) 210 K/uL (130-430); RED CELL DISTRIBUTION WIDTH 13.8 % (9.0-15.0); WHITE BLOOD COUNT (AUTO) 6.9 K/uL (4.8-10.8)
[2021-12-27 11:59] LABS: ALANINE AMINOTRANSFERASE 31 U/L (12-78); ALBUMIN 3.1 g/dL (3.4-4.8); ANION GAP 9 (5-15); ASPARTATE AMINOTRANSFERASE 22 U/L (10-37); CALCIUM 8.3 mg/dL (8.4-11.0); CHLORIDE 110 mmol/L (98-107); CREATININE 1.03 mg/dL (0.55-1.30); GLUCOSE 109 mg/dL (70-99); TOTAL BILIRUBIN 0.3 mg/dL (0.0-1.0); UREA NITROGEN, BLOOD 19 mg/dL (8-21)
[2021-12-27 12:22] LABS: BILIRUBIN,URINE NEGATIVE (NEGATIVE); BLOOD, URINE NEGATIVE (NEGATIVE); COLOR,URINE YELLOW (YELLOW); GLUCOSE,URINE NEGATIVE (NEGATIVE); KETONES,URINE NEGATIVE (NEGATIVE); LEUKOCYTE ESTERASE ,URINE 1+ (NEGATIVE); NITRITE, URINE NEGATIVE (NEGATIVE); PH,URINE 5.5 (5.0-8.0); PROTEIN URINE NEGATIVE (NEGATIVE); UROBILINOGEN,URINE 0.2 (0.2-1.0)
[2021-12-27 12:28] LABS: CLARITY/URINE SLIGHTLY HAZY (CLEAR)
[2021-12-27 13:34] LABS: BACTERIA,URINE FEW /HPF (None Seen); RBC,URINE 0-3 /HPF (0-3)
== END 2021-12-27 20:37 | disposition home or self-care (01) ==
LOC: SLB 11:13
PROVIDERS: ATTEND Internal Medicine
DX: I10 Essential (primary) hypertension (principal); D64.9 Anemia, unspecified; N30.90 Cystitis, unspecified without hematuria
CPT/HCPCS: 36415; 80053; 81000; 85025; 87086

== ENCOUNTER 2022-04-17 09:22 | Outpatient (CLI) | payer OTHER, MEDICAID ==
[2022-04-17 10:11] LABS: BASOPHILS % (AUTO) 0.7 % (0.0-2.0); EOSINOPHILS # (AUTO) 0.1 K/uL (0.0-0.4); EOSINOPHILS % (AUTO) 2.4 % (0.0-4.0); HEMATOCRIT 36.4 % (36-48); HEMOGLOBIN 11.9 g/dL (12.0-16.0); LYMPHOCYTES # (AUTO) 1.4 K/uL (1.0-5.5); LYMPHOCYTES % (AUTO) 23.9 % (20.5-51.5); MEAN CORPUSCULAR HEMOGLOBIN 30 pg (27-31); MEAN CORPUSCULAR HGB CONC 33 % (32-36); MEAN CORPUSCULAR VOLUME 93 fL (79.0-98.0); MONOCYTES # (AUTO) 0.4 K/uL (0.0-1.0); NEUTROPHILS # (AUTO) 3.8 K/uL (1.8-7.7); PLATELET COUNT (AUTO) 193 K/uL (130-430); RED BLOOD CELL COUNT(AUTO) 3.94 MIL/uL (4.2-6.2); RED CELL DISTRIBUTION WIDTH 13.8 % (9.0-15.0); WHITE BLOOD COUNT (AUTO) 5.8 K/uL (4.8-10.8)
[2022-04-17 10:30] LABS: BILIRUBIN,URINE NEGATIVE (NEGATIVE); BLOOD, URINE 3+ (NEGATIVE); COLOR,URINE YELLOW (YELLOW); GLUCOSE,URINE NEGATIVE (NEGATIVE); KETONES,URINE NEGATIVE (NEGATIVE); LEUKOCYTE ESTERASE ,URINE TRACE (NEGATIVE); NITRITE, URINE NEGATIVE (NEGATIVE); PH,URINE 5.5 (5.0-8.0); PROTEIN URINE NEGATIVE (NEGATIVE); UROBILINOGEN,URINE 0.2 (0.2-1.0)
[2022-04-17 10:31] LABS: CLARITY/URINE HAZY (CLEAR)
[2022-04-17 10:38] LABS: ALANINE AMINOTRANSFERASE 26 U/L (12-78); ALBUMIN 3.1 g/dL (3.4-4.8); ANION GAP 8 (5-15); ASPARTATE AMINOTRANSFERASE 25 U/L (10-37); CALCIUM 8.8 mg/dL (8.4-11.0); CHLORIDE 103 mmol/L (98-107); CREATININE 0.87 mg/dL (0.55-1.30); GLUCOSE 103 mg/dL (70-99); TOTAL BILIRUBIN 0.4 mg/dL (0.0-1.0); UREA NITROGEN, BLOOD 14 mg/dL (8-21)
[2022-04-17 10:46] LABS: BACTERIA,URINE MODERATE /HPF (None Seen); RBC,URINE 20-50 /HPF (0-3)
[2022-04-17 21:45] LABS: TOTAL IRON BIND. CAPACITY 284 ug/dL (250-450)
[2022-04-17 22:59] LABS: CHOLESTEROL 153 mg/dL (<200); HDL CHOLESTEROL 57 mg/dL (>55); TRIGLYCERIDES 212 mg/dL (30-150)
== END 2022-04-17 20:25 | disposition home or self-care (01) ==
LOC: SLB 09:22
PROVIDERS: ATTEND Internal Medicine
DX: I10 Essential (primary) hypertension (principal); D64.9 Anemia, unspecified; E78.5 Hyperlipidemia, unspecified; E56.9 Vitamin deficiency, unspecified; E55.9 Vitamin D deficiency, unspecified; I25.10 Atherosclerotic heart disease of native coronary artery without angina pectoris; N30.90 Cystitis, unspecified without hematuria
CPT/HCPCS: 36415; 80053; 80061; 81000; 82306; 82607; 83037; 83540; 83550; 84134; 84443; 85025; 87086

== ENCOUNTER → 2022-05-22 | Outpatient (CLI) | payer OTHER, MEDICAID | END | disposition home or self-care (01) | LOC: SUS 11:06 | PROVIDERS: ATTEND Internal Medicine | DX: I65.23 Occlusion and stenosis of bilateral carotid arteries (principal) | CPT/HCPCS: 93880 ==

== ENCOUNTER 2022-08-07 04:59 | Inpatient (IN) | payer OTHER, MEDICAID ==
[~2022-08-07] VITALS: Ht 157.5 cm; Wt 77.1 kg
[2022-08-07] VITALS (11 sets, daily range): BP systolic 78–169
--- NOTE | 2022-08-07 05:02 | NUR ---
Patient to ER bed 5 to amando for evaluation. Side rails up. Report given to KAMERON PRICE. Addendum: 08/07/22 at 0508 by [id number] TO BED 6
--- NOTE | 2022-08-07 05:05 | NUR ---
HETAL JOSEPH AT BEDSIDE EVALUATING PATIENT.
[2022-08-07] MEDS ORDERED: ACETAMINOPHEN 500 MG TABLET PO ONE ×2 (05:15→10:15)
--- NOTE | 2022-08-07 05:25 | NUR ---
PIV 20 gauge placed to . Blood obtained from murphy-puncture site and specimens sent to lab.
[2022-08-07] MEDS ORDERED: NACL 0.9% 1,000 ML IV ONE ×3 (05:30→11:30)
[2022-08-07] MEDS ORDERED: KETOROLAC TROMETHAMINE 30 MG VIAL IVP ONE (05:30)
--- NOTE | 2022-08-07 05:38 | NUR ---
Patient to CT via [facility].
[2022-08-07] MEDS ORDERED: ONDANSETRON HCL 4 MG/2 ML VIAL IVP ONE (05:45)
[2022-08-07 05:46] LABS: BASOPHILS % (AUTO) 0.2 % (0.0-2.0); EOSINOPHILS % (AUTO) 0.5 % (0.0-4.0); HEMATOCRIT 35.6 % (36-48); HEMOGLOBIN 11.4 g/dL (12.0-16.0); LYMPHOCYTES # (AUTO) 0.6 K/uL (1.0-5.5); LYMPHOCYTES % (AUTO) 10.9 % (20.5-51.5); MEAN CORPUSCULAR HEMOGLOBIN 30 pg (27-31); MEAN CORPUSCULAR HGB CONC 32 % (32-36); MEAN CORPUSCULAR VOLUME 93 fL (79.0-98.0); MONOCYTES % (AUTO) 0.4 % (1.7-9.3); NEUTROPHILS # (AUTO) 5.1 K/uL (1.8-7.7); PLATELET COUNT (AUTO) 184 K/uL (130-430); RED BLOOD CELL COUNT(AUTO) 3.82 MIL/uL (4.2-6.2); RED CELL DISTRIBUTION WIDTH 14.3 % (9.0-15.0); WHITE BLOOD COUNT (AUTO) 5.8 K/uL (4.8-10.8)
--- NOTE | 2022-08-07 05:46 | NUR ---
Patient return to room [address]
--- NOTE | 2022-08-07 05:50 | NUR ---
IVF NS 1000 ml bolus infusion started, followed with Zofran 4 mg IVP & Toradol 30 mg IVP.
[2022-08-07 06:00] LABS: ALANINE AMINOTRANSFERASE 19 U/L (12-78); ALBUMIN 2.6 g/dL (3.4-4.8); ANION GAP 9 (5-15); ASPARTATE AMINOTRANSFERASE 29 U/L (10-37); CALCIUM 8.2 mg/dL (8.4-11.0); CHLORIDE 100 mmol/L (98-107); CREATININE 1.08 mg/dL (0.55-1.30); GLUCOSE 117 mg/dL (70-99); TOTAL BILIRUBIN 0.4 mg/dL (0.0-1.0); UREA NITROGEN, BLOOD 19 mg/dL (8-21)
--- NOTE | 2022-08-07 06:14 | NUR ---
Patient medicated with Tylenol 1000 mg PO.
--- NOTE | 2022-08-07 06:35 | NUR ---
UA collected and specimen sent to lab.
[2022-08-07] MEDS ORDERED: cefTRIAXone 1 GM in D5W 50 ML IV ONE (06:45)
--- NOTE | 2022-08-07 07:08 | NUR ---
Admit bed requested Patient will be admitted to care of Dr. Lowery. Admitted to unit. Diagnosis Inpatient (Yes or No) Observation (Yes or No) Orientation concerns or request close to nursing station (Yes or No) Covid Status On vent or bipap Isolation requirements Needs a sitter From Home (Yes or if No enter name of facility) Requires Dialysis (Yes or No) Med Rec Completed (Yes of No)
[2022-08-07 07:15] LABS: BILIRUBIN,URINE NEGATIVE (NEGATIVE); BLOOD, URINE 2+ (NEGATIVE); CLARITY/URINE SLIGHTLY HAZY (CLEAR); COLOR,URINE YELLOW (YELLOW); GLUCOSE,URINE NEGATIVE (NEGATIVE); KETONES,URINE NEGATIVE (NEGATIVE); LEUKOCYTE ESTERASE ,URINE 1+ (NEGATIVE); PROTEIN URINE NEGATIVE (NEGATIVE)
[2022-08-07] MEDS: NACL 0.9% 1,000 ML IV SCH ×2 (07:15→13:57)
--- NOTE | 2022-08-07 07:15 | NUR ---
Care endorsed to MARTHA Cam.
[2022-08-07 07:16] LABS: NITRITE, URINE POSITIVE (NEGATIVE); UROBILINOGEN,URINE 0.2 (0.2-1.0)
--- NOTE | 2022-08-07 07:20 | NUR ---
Received report on Patient. Patient AAOX4. Daughter at bedside. Patient is awaiting bed assignment as med surg admit. Patient denies pain at this time. Temp 99.8 following admin of Tylenol & IV fluid admin. No c/o nausea vomiting currently.
[2022-08-07] MEDS ORDERED: cefTRIAXone 1 GM VIAL ONE ×2 (07:43)
[2022-08-07] MEDS ORDERED: TAMSULOSIN HCL 0.4 MG CAP PO ONE (08:00)
[2022-08-07] MEDS ORDERED: LIP40 PO (08:04)
[2022-08-07] MEDS ORDERED: MECL-225 PO (08:04)
[2022-08-07] MEDS ORDERED: FURO-150 PO (08:04)
[2022-08-07] MEDS ORDERED: CYAN100010 PO (08:04)
[2022-08-07] MEDS ORDERED: FERR236T3 PO (08:04)
[2022-08-07] MEDS ORDERED: VITD2000 PO (08:04)
[2022-08-07 08:08] LABS: BACTERIA,URINE MANY /HPF (None Seen); PH,URINE 6.5 (5.0-8.0)
--- NOTE | 2022-08-07 08:25 | NUR ---
Medication reconciliation completed with information provided by patient. Any prior medication reconciliation on file was reviewed and corrected.
[2022-08-07] MEDS ORDERED: MORPHINE 4 MG INJ. 4 MG/ML VIAL IVP PRN (08:30)
[2022-08-07] MEDS ORDERED: ONDANSETRON HCL 4 MG/2 ML VIAL IVP PRN ×2 (08:30→18:30)
--- NOTE | 2022-08-07 08:30 | NUR ---
Admit bed requested Patient will be admitted to care of [Beverley]. Admitted to [Medsurg] unit. Diagnosis [kidney stones, Hydronephrosis] Inpatient (Yes or No) [Yes] Observation (Yes or No) [No] Orientation concerns or request close to nursing station (Yes or No) [No] Covid Status [N/A] On vent or bipap [N/A] Isolation requirements [N/A] Needs a sitter [N/A] From Home (Yes or if No enter name of facility) [YES] Requires Dialysis (Yes or No) [N/A] Med Rec Completed (Yes of No) [YES]
[2022-08-07] MEDS ORDERED: KETOROLAC TROMETHAMINE 15 MG VIAL ONE (08:36)
[2022-08-07] MEDS ORDERED: MECLIZINE HCL 25 MG TABLET (ANITVERT) PO PRN (09:45)
--- NOTE | 2022-08-07 10:40 | NUR ---
SPOKE TO DR CHINCHILLA AT BEDSIDE REGARDING CONCERNS REGARDING PATIENT DECREASE IN BLOOD PRESSURE. DOCTOR ADVISES TO CONTINUE WITH IV BOLUS AND MONITOR.
--- NOTE | 2022-08-07 10:40 | NUR ---
Dr Lowery evaluating patient at bedside
--- NOTE | 2022-08-07 11:29 | NUR ---
Second liter of NS started for blood pressure management as ordered by Dr Lowery , current BP 82/36
[2022-08-07] MEDS ORDERED: ASPIRIN 325 MG TABLET PO ONE (11:30)
[2022-08-07] MEDS ORDERED: CYANOCOBALAMIN (VITAMIN B-12) 1,000 MCG TABLET PO ONE (11:30)
[2022-08-07] MEDS ORDERED: PANTOPRAZOLE SODIUM 40 MG TAB PO ONE (11:30)
[2022-08-07] MEDS ORDERED: ATORVASTATIN 20 MG TABLET PO ONE (11:30)
[2022-08-07] MEDS ORDERED: FUROSEMIDE 20 MG TABLET PO ONE (11:30)
[2022-08-07] MEDS ORDERED: FERROUS GLUCONATE 324 MG TABLET PO ONE (11:30)
[2022-08-07] MEDS ORDERED: CHOLECALCIFEROL (VITAMIN D3) 2,000 UNIT TABLET PO ONE (11:30)
[2022-08-07] MEDS ORDERED: METOPROLOL TARTRATE 25 MG TABLET PO ONE (11:30)
[2022-08-07] MEDS ORDERED: lisinopriL 20 MG TABLET PO ONE (11:30)
[2022-08-07] MEDS ORDERED: NOREPINEPHRINE BITARTRATE 4 MG in D5W 246 ML IV PRN ×3 (12:00→13:15)
[2022-08-07] MEDS: KETOROLAC TROMETHAMINE 15 MG VIAL IVP SCH ×2 (12:00→18:00)
--- NOTE | 2022-08-07 12:01 | NUR ---
PATIENT BLOOD PRESSURE CONTINUES TO FALL DESPITE CONTUNIED IV HYDRATION. CURRENTLY 77/34 WHILE RECEIVING THIRD LITER OF NS. DAUGHTER ZO IS AT BEDSIDE & INFORMED WE WILL BE CALLING MD FOR NEW ORDERS. SPOKE TO DR CHINCHILLA, RECEIVED ORDERS TO ADMIT TO ICU & START LEVOFED. CHARGE NURSE NOTIFIED.
[2022-08-07] MEDS ORDERED: NOREPINEPHRINE 4 MG/4 ML VIAL IV ONE ×2 (12:06→22:14)
--- NOTE | 2022-08-07 12:40 | NUR ---
US TECH AT BEDSIDE PERFORMING ECHOCARDIOGRAM
--- NOTE | 2022-08-07 13:30 | NUR ---
Patient was admitted to ICU unit, room ICU6. Belongings list completed. Complete and up to date summary report printed. SBAR report given at bedside with opportunity for questions. Patient in stable condition upon admission to ICU.
--- NOTE | 2022-08-07 13:35 | NUR ---
ADMISSION RECEIVED TO ROOM 6, ALERT, ORIENTED, WITH COMPLAINTS OF PAIN TO THE LEFT SIDE OF HER ABDOMEN, SHE STATED THAT SHE WAS SHAKING. SHE WAS TAKEN TO E.R. THIS AM, AMBULANCE TECH FELT THAT SHE WAS WARM. SHE HAD A FEVER TOO PER PT. HER TEMP NOW 97.7, IV LEVOPHED BAG WAS WITH THE PATIENT AND IV DRIP STARTED TO O.03 MCG/KG/MIN, BLOOD PRESSURE 91/40, HEART RATE 85.
--- NOTE | 2022-08-07 14:01 | NUR ---
Called Dr. Moralez with a consult spoke with Erin
--- NOTE | 2022-08-07 14:02 | NUR ---
Called Dr. Palma with a consult at [phone]
--- NOTE | 2022-08-07 14:16 | NUR ---
IV LEVAQUIN CALLED DR CHINCHILLA, REPORTED THAT PT HAD AN UPSET STOMACH WHEN SHE RECEIVED LEVAQUIN. NEW ORDERS RECEIVED, PHARMACY AWARE OF PT'S REACTION TO THE MEDICINE.
--- NOTE | 2022-08-07 16:05 | NUR ---
MD DR CHINCHILLA CAME IN TO EVALUATE THE PATIENT. ORDERED TO DO BALDDER SCAN. SET UP THE MACHINE, EXPLAINED THE PROCEDURE. PT FELT THE URGE TO URINATE. BEDPAN PROVIDED AND SHE VOIDED 200 ML, URINE STRAINED TO CHECK FOR ANY STONES.
--- NOTE | 2022-08-07 16:33 | NUR ---
CONSENT APPROACHED PT, SPOKE ABOUT THE PLAN FOR HER SURGERY. PT REFUSED TO GO, SHE ASKED MANY QUESTIONS. SHE WANTS TO SPEAK WITH THE SURGEON BEFORE SHE LEAVES THE ICU FOR SURGERY.
[2022-08-07] MEDS ORDERED: GENTAMICIN IN NACL, ISO-OSM 100 ML IV ONE (17:00)
[2022-08-07] MEDS ORDERED: NS IRRIG SOLN 1000 ML IR ONE (17:35)
[2022-08-07] MEDS ORDERED: PROPOFOL 200MG/ 20ML VIAL (DIPRIVAN) IV ONE (17:35)
[2022-08-07] MEDS ORDERED: LR 1,000 ML IV.SOLN IV ONE (17:35)
--- NOTE | 2022-08-07 17:37 | NUR ---
TO O.. DR CONWAY (SURGEON) WAS IN THE ROOM, SPOKE TO THE PATIENT AND HER DAUGHTER. DR LAURENT AND O.R CREW CAME IN AFTER, AND ANESTHESIOLOGIST SPOKE TO THE PATIENT AND HER DAUGHTER WELL. PT TRANSPORTED TO O. FOR CYSTOSCOPY, LEFT URETERAL STENT PLACEMENT VIA BED, ON PORTABLE BENZENE WORKER, LEVOPHED DRIP INFUSING AT 0.12 MCG/KG/MIN
[2022-08-07] MEDS: PIPERACILLIN/TAZO 3.375/DEX-IS 50 ML IV SCH (18:00)
[2022-08-07] MEDS ORDERED: fentaNYL CITRATE/PF 100 MCG/2 ML AMP IVP PRN ×2 (18:30)
[2022-08-07] MEDS ORDERED: METOCLOPRAMIDE HCL 10 MG/2 ML VIAL IVP PRN (18:30)
--- NOTE | 2022-08-07 19:20 | NUR ---
TO ICU RECEIVED PT FROM RECOVERY ROOM DEPT., PT ALERT, ON LEVOPHED DRIP AT 0.3 MCG/KG/MIN, NSS IVF, SALINE LOCK IN LEFT HAND, NO COMPLAINTS OF PAIN, REPORT GIVEN TO KAMERON ALEXIS.
[2022-08-07] MEDS: lisinopriL 20 MG TABLET PO SCH (20:29)
[2022-08-07] MEDS ORDERED: METOPROLOL TARTRATE 25 MG TABLET PO SCH (21:00)
[2022-08-07] MEDS ORDERED: FUROSEMIDE 20 MG TABLET PO SCH (21:00)
[2022-08-07] MEDS ORDERED: NS 1000 ML IV.SOLN IV ONE (21:50)
[2022-08-07] MEDS ORDERED: ALBUMIN HUMAN 25% 100 ML IV ONE ×2 (21:55→23:00)
[2022-08-08] VITALS (24 sets, daily range): BP systolic 90–129
[2022-08-08] MEDS: NACL 0.9% 1,000 ML IV SCH ×2 (00:06→06:51)
[2022-08-08] MEDS: PIPERACILLIN/TAZO 3.375/DEX-IS 50 ML IV SCH ×5 (00:06→23:37)
[2022-08-08] MEDS: KETOROLAC TROMETHAMINE 15 MG VIAL IVP SCH ×5 (00:11→23:36)
[2022-08-08 06:35] LABS: BASOPHILS % (AUTO) 0.3 % (0.0-2.0); EOSINOPHILS % (AUTO) 0.1 % (0.0-4.0); HEMATOCRIT 27.2 % (36-48); HEMOGLOBIN 8.9 g/dL (12.0-16.0); LYMPHOCYTES # (AUTO) 0.9 K/uL (1.0-5.5); LYMPHOCYTES % (AUTO) 7.4 % (20.5-51.5); MEAN CORPUSCULAR HEMOGLOBIN 31 pg (27-31); MEAN CORPUSCULAR HGB CONC 33 % (32-36); MEAN CORPUSCULAR VOLUME 94 fL (79.0-98.0); MONOCYTES # (AUTO) 0.7 K/uL (0.0-1.0); MONOCYTES % (AUTO) 5.6 % (1.7-9.3); NEUTROPHILS # (AUTO) 10.7 K/uL (1.8-7.7); NEUTROPHILS % (AUTO) 86.6 % (40.0-70.0); PLATELET COUNT (AUTO) 172 K/uL (130-430); RED BLOOD CELL COUNT(AUTO) 2.89 MIL/uL (4.2-6.2); RED CELL DISTRIBUTION WIDTH 14.2 % (9.0-15.0); WHITE BLOOD COUNT (AUTO) 12.4 K/uL (4.8-10.8)
[2022-08-08 07:14] LABS: ALANINE AMINOTRANSFERASE 18 U/L (12-78); ALBUMIN 2.4 g/dL (3.4-4.8); ANION GAP 11 (5-15); ASPARTATE AMINOTRANSFERASE 24 U/L (10-37); CALCIUM 7.1 mg/dL (8.4-11.0); CHLORIDE 114 mmol/L (98-107); CREATININE 0.94 mg/dL (0.55-1.30); GLUCOSE 119 mg/dL (74-106); TOTAL BILIRUBIN 0.4 mg/dL (0.0-1.0); UREA NITROGEN, BLOOD 19 mg/dL (8-21)
[2022-08-08] MEDS ORDERED: NS 500 ML IV ONE (08:00)
[2022-08-08] MEDS: PANTOPRAZOLE SODIUM 40 MG TAB PO SCH (08:19)
[2022-08-08] MEDS: CHOLECALCIFEROL (VITAMIN D3) 2,000 UNIT TABLET PO SCH (08:19)
[2022-08-08] MEDS: ASPIRIN 325 MG TABLET PO SCH (08:19)
[2022-08-08] MEDS: ATORVASTATIN 20 MG TABLET PO SCH (08:20)
[2022-08-08] MEDS: lisinopriL 20 MG TABLET PO SCH ×2 (08:25→20:52)
[2022-08-08] MEDS ORDERED: NOREPINEPHRINE 4 MG/4 ML VIAL IV ONE (08:29)
--- NOTE | 2022-08-08 08:30 | NUR ---
RECEIVED A CALL FROM LAB REGARDING TROP 1019 , PATIENT IS RESTING IN BED WITH NO C/O PAIN AT THIS TIME, PREVIOUS TROP 1287 TRENDING DOWN, DR MORATAYA AWARE THE RESULT , NO NEW ORDER NOTED.
[2022-08-08] MEDS: CYANOCOBALAMIN (VITAMIN B-12) 1,000 MCG TABLET PO SCH (08:35)
[2022-08-08] MEDS ORDERED: FERROUS GLUCONATE 324 MG TABLET PO SCH ×2 (09:00)
--- NOTE | 2022-08-08 10:00 | NUR ---
SEEN BY DIRK CUSTOMER CONSULTANT FOR DR CONWAY, SPOKE TO PATIENT AT BEDSIDE, NO NEW ORDER NOTED.
--- NOTE | 2022-08-08 10:31 | NUR ---
PAGED DR CONWAY FOR DIET ORDER.
[2022-08-08] MEDS ORDERED: 0.45% NS 500 ML IV ONE (11:15)
[2022-08-08] MEDS ORDERED: ENOXAPARIN SODIUM 40 MG/0.4 ML SYRINGE SUBCUT ONE (11:30)
[2022-08-08 12:18] LABS: TOTAL IRON BIND. CAPACITY 167 ug/dL (250-450)
--- NOTE | 2022-08-08 13:00 | NUR ---
50% LUNCH TAKEN , NO N/V NOTED. FAMILY AT BEDSIDE, RN UPDATED THE PLAN OF CARE FOR TODAY. VERBALLY UNDERSTAND.
[2022-08-08] MEDS: SOD FERRIC GLUC COMPLEX/SUC 125 MG in NS 100 ML IV SCH (16:05)
--- NOTE | 2022-08-08 16:38 | NUR ---
TITRATE LEVOPHED TO 0.04 MCG SBP DROP TO 90'S, WILL CONTINUE TO MONITOR.
--- NOTE | 2022-08-08 18:16 | NUR ---
DAUGHTER REFUSED TORADOL 15 MG IV AND STATES TORADOL CAUSING BP DROP , WILL CONTINUE TO MONITOR.
[2022-08-08] MEDS: MULTIVITAMINS TAB 1 TABLET PO SCH (21:08)
[2022-08-09] VITALS (19 sets, daily range): BP systolic 112–149
--- NOTE | 2022-08-09 | NUR ---
LEVOPHED OFF Blood pressure 120/86 as levophed infusing at 0.01 mcg/kg/min. Levophed turned off at this time.
[2022-08-09] MEDS ORDERED: ACETAMINOPHEN 325 MG TABLET PO PRN (01:00)
[2022-08-09] MEDS ORDERED: ACETAMINOPHEN 325 MG TABLET ONE (01:05)
[2022-08-09 05:49] LABS: BASOPHILS # (AUTO) 0.1 K/uL (0.0-0.2); BASOPHILS % (AUTO) 0.9 % (0.0-2.0); EOSINOPHILS # (AUTO) 0.2 K/uL (0.0-0.4); EOSINOPHILS % (AUTO) 2.4 % (0.0-4.0); HEMATOCRIT 25.5 % (36-48); HEMOGLOBIN 8.4 g/dL (12.0-16.0); LYMPHOCYTES # (AUTO) 0.7 K/uL (1.0-5.5); LYMPHOCYTES % (AUTO) 10.5 % (20.5-51.5); MEAN CORPUSCULAR HEMOGLOBIN 31 pg (27-31); MEAN CORPUSCULAR HGB CONC 33 % (32-36); MEAN CORPUSCULAR VOLUME 94 fL (79.0-98.0); MONOCYTES # (AUTO) 0.5 K/uL (0.0-1.0); MONOCYTES % (AUTO) 7.9 % (1.7-9.3); NEUTROPHILS # (AUTO) 5.2 K/uL (1.8-7.7); NEUTROPHILS % (AUTO) 78.3 % (40.0-70.0); PLATELET COUNT (AUTO) 145 K/uL (130-430); RED BLOOD CELL COUNT(AUTO) 2.72 MIL/uL (4.2-6.2); RED CELL DISTRIBUTION WIDTH 14.2 % (9.0-15.0); WHITE BLOOD COUNT (AUTO) 6.7 K/uL (4.8-10.8)
[2022-08-09] MEDS: KETOROLAC TROMETHAMINE 15 MG VIAL IVP SCH ×3 (06:00→17:32)
[2022-08-09 06:27] LABS: ANION GAP 9 (5-15); CALCIUM 7.5 mg/dL (8.4-11.0); CHLORIDE 112 mmol/L (98-107); CREATININE 0.94 mg/dL (0.55-1.30); GLUCOSE 92 mg/dL (74-106); UREA NITROGEN, BLOOD 14 mg/dL (8-21)
[2022-08-09] MEDS: PIPERACILLIN/TAZO 3.375/DEX-IS 50 ML IV SCH ×2 (06:39→12:48)
[2022-08-09] MEDS: CHOLECALCIFEROL (VITAMIN D3) 2,000 UNIT TABLET PO SCH (08:52)
[2022-08-09] MEDS: MULTIVITAMINS TAB 1 TABLET PO SCH ×2 (08:52→20:52)
[2022-08-09] MEDS: PANTOPRAZOLE SODIUM 40 MG TAB PO SCH (08:52)
[2022-08-09] MEDS: ASPIRIN 325 MG TABLET PO SCH (08:52)
[2022-08-09] MEDS: lisinopriL 20 MG TABLET PO SCH ×2 (08:53→20:57)
[2022-08-09] MEDS: ATORVASTATIN 20 MG TABLET PO SCH (08:53)
[2022-08-09] MEDS: ENOXAPARIN SODIUM 40 MG/0.4 ML SYRINGE SUBCUT SCH (08:55)
[2022-08-09] MEDS: CYANOCOBALAMIN (VITAMIN B-12) 1,000 MCG TABLET PO SCH (08:55)
--- NOTE | 2022-08-09 12:15 | NUR ---
IV LEFT HAND SORE PER PT, GENERALIZED EDEMA, IV CATH DISCONTINUED. NEW IV INSERTED IN RIGHT HAND, USING 22 GAUGE CATHETER.
--- NOTE | 2022-08-09 13:10 | NUR ---
MDRO PT AND HER DAUGHTER APPROACHED AND MADE KNOWN ON RESULT OF MDRO, URINE INFECTION.
[2022-08-09] MEDS ORDERED: ERTAPENEM SODIUM 1 GM in NS 50 ML IV SCH ×2 (14:00→16:00)
--- NOTE | 2022-08-09 14:35 | NUR ---
MD ROUNDS PT SEEN BY DR. BRUNER, WITH ORDERS. WILL CONSULT DR. SULLIVAN FOR NASAL BLEEDING.
--- NOTE | 2022-08-09 14:50 | NUR ---
IAlonso MANCIA IN THE UNIT AND WENT TO SEE THE PATIENT.
--- NOTE | 2022-08-09 15:15 | NUR ---
Wound Evaluation: Wound Consult ordered for Low Kalen Score. Patient evaluated for a low Kalen score of 17. Patient was awake, alert, oriented and received [facility] with an Isoflex NORI mattress. Patient is able to turn in bed. Skin is intact. Recommend: Encourage and assist patient as needed with repositioning every 2 hours with pillow support. Elevate, off-load and float bilateral heels with pillows. Offload pressure areas with pillows for pressure re-distribution. Perform skin care and monitor skin integrity Q shift.
--- NOTE | 2022-08-09 15:28 | NUR ---
SPOKE WITH CAROLE REGARDING NEW CONSULTATION ORDERED BY DR. CHINCHILLA FOR DR. MANCIA FOR EBSL.
[2022-08-09] MEDS: SOD FERRIC GLUC COMPLEX/SUC 125 MG in NS 100 ML IV SCH (15:33)
--- NOTE | 2022-08-09 16:29 | NUR ---
TO MED SURG DEPT. TRANSFERRED CARE TO KAMERON HAMEED. MOVED PT VIA BED TO 101-A, IVF 1/2 NS AT 150 ML PER HR, IV FERRLICIT INFUSING THRU RIGHT A/C.
--- NOTE | 2022-08-09 16:30 | NUR ---
Transfer Received pt from [facility]. Pt came to floor via bed. IV in RAC intact and patent infusing IVF's well. Pt has SCD's on bilaterally at this time. Pt's daughter at bedside. Pt stable. Pt and her daughter oriented to room and nursing routines and procedures. Questions/concerns were answered at this time. Call light within reach.
[2022-08-09] MEDS: FUROSEMIDE 20 MG TABLET PO SCH (17:32)
--- NOTE | 2022-08-09 17:32 | NUR ---
Note Pt refuses Toradol IVP (has no [pain and states Toradol brings her BP very low) and Lasix PO (does not want to urinate all night)
--- NOTE | 2022-08-09 18:50 | NUR ---
End of shift Pt sitting up in bed eating her dinner. Pt's daughter at bedside. Pt was checked on q1' and PRN all shift since 1630. Pt was maintained with safety precautions all shift. Pt's RAC IV intact and patent infusing IVF's well. Pt has SCD's on bilaterally all shift. No SOB/resp distress or abdominal pain/discomfort noted. No discomfort when urinating at this time. Call light within reach.
[2022-08-09] MEDS: MEROPENEM 500 MG in NS 50 ML IV SCH (22:00)
[2022-08-09] MEDS ORDERED: MEROPENEM 500 MG VIAL IV ONE (22:56)
[2022-08-10 00:20] VITALS: BP_SYST 145
[2022-08-10] MEDS: KETOROLAC TROMETHAMINE 15 MG VIAL IVP SCH ×3 (00:20→05:30)
[2022-08-10] MEDS: MEROPENEM 500 MG in NS 50 ML IV SCH ×3 (06:00→21:29)
[2022-08-10 07:04] LABS: ALANINE AMINOTRANSFERASE 21 U/L (12-78); ANION GAP 9 (5-15); ASPARTATE AMINOTRANSFERASE 23 U/L (10-37); CALCIUM 8.1 mg/dL (8.4-11.0); CHLORIDE 111 mmol/L (98-107); GLUCOSE 91 mg/dL (74-106); TOTAL BILIRUBIN 0.3 mg/dL (0.0-1.0); UREA NITROGEN, BLOOD 9 mg/dL (8-21)
[2022-08-10 08:00] VITALS: BP_SYST 135
[2022-08-10 08:37] LABS: BASOPHILS % (AUTO) 0.6 % (0.0-2.0); EOSINOPHILS # (AUTO) 0.1 K/uL (0.0-0.4); EOSINOPHILS % (AUTO) 2.1 % (0.0-4.0); HEMATOCRIT 29.5 % (36-48); HEMOGLOBIN 9.6 g/dL (12.0-16.0); LYMPHOCYTES % (AUTO) 14.1 % (20.5-51.5); MEAN CORPUSCULAR HEMOGLOBIN 30 pg (27-31); MEAN CORPUSCULAR HGB CONC 33 % (32-36); MEAN CORPUSCULAR VOLUME 93 fL (79.0-98.0); MONOCYTES # (AUTO) 0.5 K/uL (0.0-1.0); MONOCYTES % (AUTO) 7.5 % (1.7-9.3); NEUTROPHILS # (AUTO) 5.3 K/uL (1.8-7.7); NEUTROPHILS % (AUTO) 75.7 % (40.0-70.0); PLATELET COUNT (AUTO) 183 K/uL (130-430); RED BLOOD CELL COUNT(AUTO) 3.17 MIL/uL (4.2-6.2); RED CELL DISTRIBUTION WIDTH 13.8 % (9.0-15.0)
[2022-08-10] MEDS: ASPIRIN 81 MG TAB.CHEW PO SCH (09:44)
[2022-08-10] MEDS: PANTOPRAZOLE SODIUM 40 MG TAB PO SCH (09:44)
[2022-08-10] MEDS: lisinopriL 20 MG TABLET PO SCH ×2 (09:44→21:29)
[2022-08-10] MEDS: CHOLECALCIFEROL (VITAMIN D3) 2,000 UNIT TABLET PO SCH (09:44)
[2022-08-10] MEDS: FUROSEMIDE 20 MG TABLET PO SCH ×2 (09:45→17:42)
[2022-08-10] MEDS: ATORVASTATIN 20 MG TABLET PO SCH (09:45)
[2022-08-10] MEDS: MULTIVITAMINS TAB 1 TABLET PO SCH ×2 (09:45→21:27)
[2022-08-10] MEDS: CYANOCOBALAMIN (VITAMIN B-12) 1,000 MCG TABLET PO SCH (09:45)
[2022-08-10] MEDS: ENOXAPARIN SODIUM 40 MG/0.4 ML SYRINGE SUBCUT SCH (09:46)
--- NOTE | 2022-08-10 15:17 | NUR ---
ATTENDING MD DR CHINCHILLA WAS CALLED, RE: PT IS HAVING DIARRHEA, ASKING FOR IMODIUM TO TAKE. SPOKE TO MAY.
[2022-08-10] MEDS ORDERED: LOPERAMIDE HCL 2 MG CAPSULE PO PRN (15:30)
[2022-08-10] MEDS ORDERED: LOPERAMIDE HCL 2 MG CAPSULE PO ONE (15:30)
[2022-08-10] MEDS: SOD FERRIC GLUC COMPLEX/SUC 125 MG in NS 100 ML IV SCH (15:41)
[2022-08-10 17:43] VITALS: BP_SYST 153
--- NOTE | 2022-08-10 18:35 | NUR ---
Medicated per new order for watery stools,results pending,tolerating diet ,no c/o pain,up at bedside with bedside commode,continue with plan of care.
[2022-08-10 20:00] VITALS: BP_SYST 149
[2022-08-11 00:12] VITALS: BP_SYST 149
[2022-08-11] MEDS: MEROPENEM 500 MG in NS 50 ML IV SCH ×2 (06:19→14:46)
[2022-08-11 06:57] LABS: BASOPHILS # (AUTO) 0.1 K/uL (0.0-0.2); BASOPHILS % (AUTO) 1.1 % (0.0-2.0); EOSINOPHILS # (AUTO) 0.2 K/uL (0.0-0.4); EOSINOPHILS % (AUTO) 2.6 % (0.0-4.0); HEMATOCRIT 29.4 % (36-48); HEMOGLOBIN 9.7 g/dL (12.0-16.0); LYMPHOCYTES # (AUTO) 1.1 K/uL (1.0-5.5); LYMPHOCYTES % (AUTO) 15.7 % (20.5-51.5); MEAN CORPUSCULAR HEMOGLOBIN 31 pg (27-31); MEAN CORPUSCULAR HGB CONC 33 % (32-36); MEAN CORPUSCULAR VOLUME 92 fL (79.0-98.0); MONOCYTES # (AUTO) 0.5 K/uL (0.0-1.0); NEUTROPHILS % (AUTO) 73.6 % (40.0-70.0); PLATELET COUNT (AUTO) 209 K/uL (130-430); RED CELL DISTRIBUTION WIDTH 13.9 % (9.0-15.0); WHITE BLOOD COUNT (AUTO) 6.8 K/uL (4.8-10.8)
[2022-08-11 07:13] LABS: ALANINE AMINOTRANSFERASE 21 U/L (12-78); ALBUMIN 2.2 g/dL (3.4-4.8); ANION GAP 7 (5-15); ASPARTATE AMINOTRANSFERASE 24 U/L (10-37); CALCIUM 8.1 mg/dL (8.4-11.0); CHLORIDE 109 mmol/L (98-107); CREATININE 0.81 mg/dL (0.55-1.30); GLUCOSE 87 mg/dL (74-106); TOTAL BILIRUBIN 0.3 mg/dL (0.0-1.0); UREA NITROGEN, BLOOD 8 mg/dL (8-21)
[2022-08-11 08:00] VITALS: BP_SYST 141
[2022-08-11] MEDS: ASPIRIN 81 MG TAB.CHEW PO SCH (08:44)
[2022-08-11] MEDS: lisinopriL 20 MG TABLET PO SCH (08:44)
[2022-08-11] MEDS: MULTIVITAMINS TAB 1 TABLET PO SCH (08:44)
[2022-08-11] MEDS: CYANOCOBALAMIN (VITAMIN B-12) 1,000 MCG TABLET PO SCH (08:44)
[2022-08-11] MEDS: ATORVASTATIN 20 MG TABLET PO SCH (08:45)
[2022-08-11] MEDS: PANTOPRAZOLE SODIUM 40 MG TAB PO SCH (08:45)
[2022-08-11] MEDS: ENOXAPARIN SODIUM 40 MG/0.4 ML SYRINGE SUBCUT SCH (08:45)
[2022-08-11] MEDS: CHOLECALCIFEROL (VITAMIN D3) 2,000 UNIT TABLET PO SCH (08:45)
[2022-08-11] MEDS: FUROSEMIDE 20 MG TABLET PO SCH (08:45)
[2022-08-11 12:22] VITALS: BP_SYST 150
[2022-08-11] MEDS: SOD FERRIC GLUC COMPLEX/SUC 125 MG in NS 100 ML IV SCH (15:53)
[2022-08-11 17:15] VITALS: BP_SYST 145
[2022-08-11 18:25] VITALS: BP_SYST 141
[2022-08-12] MEDS ORDERED: FUROSEMIDE 20 MG TABLET PO SCH (09:00)
--- NOTE | 2022-08-12 09:59 | NUR ---
SENT PACKET TO LILIANA AT [facility] FAX [phone] DIRECT# [phone]
--- NOTE | 2022-08-12 11:50 | NUR ---
Spoke w/ Erin at [facility]-She has spoken to the patient's daughter and has set up home health and medication delivery-To start service at 5PM this evening and the daughter is aware of the plan of care and has agreed to plan of care.
== END 2022-08-11 18:55 | disposition home health service (06) | DRG 853 ==
LOC: SED 04:59 → SMU 07:15 → SIC 13:30 → STU 08-09 15:54 → SMU 08-09 16:24
PROVIDERS: ADMIT Internal Medicine; ATTEND Internal Medicine
PROC: BT17ZZZ Fluoroscopy of Left Ureter (ICD-10-PCS; 2022-08-07)
PROC: 0T778DZ Dilation of Left Ureter with Intraluminal Device, Via Natural or Artificial Opening Endoscopic (ICD-10-PCS; principal; 2022-08-07 17:35)
PROC: 05HY33Z Insertion of Infusion Device into Upper Vein, Percutaneous Approach (ICD-10-PCS; 2022-08-10)
PROC: B54MZZA Ultrasonography of Right Upper Extremity Veins, Guidance (ICD-10-PCS; 2022-08-10)
DX: A41.9 Sepsis, unspecified organism (principal); I21.A1 Myocardial infarction type 2; R57.1 Hypovolemic shock; R65.21 Severe sepsis with septic shock; N13.6 Pyonephrosis; K80.20 Calculus of gallbladder without cholecystitis without obstruction; K76.0 Fatty (change of) liver, not elsewhere classified; K21.9 Gastro-esophageal reflux disease without esophagitis; K44.9 Diaphragmatic hernia without obstruction or gangrene; E78.5 Hyperlipidemia, unspecified; I25.10 Atherosclerotic heart disease of native coronary artery without angina pectoris; I10 Essential (primary) hypertension; I44.7 Left bundle-branch block, unspecified; Z88.5 Allergy status to narcotic agent; Z79.899 Other long term (current) drug therapy; Z87.442 Personal history of urinary calculi; Z79.82 Long term (current) use of aspirin
CPT/HCPCS: 36415; 71045; 76000; 76376; 80048; 80053; 81000; 83540; 83550; 83605; 83880; 84484; 85025; 87040; 87081; 87086; 93005; 93306; 96361; 96365; 96375; 97116-GP; 97530-GP; 99285; C1751; C1769; C2625; J0696; J1335; J1580; J1650; J1885; J1956; J2185; J2270; J2405; J2543; J2704; J2916; J7030; J7050; J7060; J7120; P9046; Q9967

== ENCOUNTER 2022-10-07 09:43 | Outpatient (CLI) | payer OTHER, MEDICAID ==
[~2022-10-07 09:43] MED LIST changes: -CEPH-568 PO; +CYAN100010 PO; +FERR236T3 PO; +FURO-150 PO; +LIP40 PO; +MECL-225 PO; -NITRO; +VITD2000 PO
[2022-10-07 11:04] LABS: BASOPHILS # (AUTO) 0.1 K/uL (0.0-0.2); EOSINOPHILS # (AUTO) 0.1 K/uL (0.0-0.4); EOSINOPHILS % (AUTO) 1.8 % (0.0-4.0); HEMATOCRIT 35.3 % (36-48); HEMOGLOBIN 11.5 g/dL (12.0-16.0); LYMPHOCYTES # (AUTO) 1.5 K/uL (1.0-5.5); LYMPHOCYTES % (AUTO) 26.5 % (20.5-51.5); MEAN CORPUSCULAR HEMOGLOBIN 30 pg (27-31); MEAN CORPUSCULAR HGB CONC 33 % (32-36); MEAN CORPUSCULAR VOLUME 93 fL (79.0-98.0); MONOCYTES # (AUTO) 0.4 K/uL (0.0-1.0); MONOCYTES % (AUTO) 6.6 % (1.7-9.3); NEUTROPHILS # (AUTO) 3.7 K/uL (1.8-7.7); NEUTROPHILS % (AUTO) 64.1 % (40.0-70.0); PLATELET COUNT (AUTO) 207 K/uL (130-430); RED CELL DISTRIBUTION WIDTH 14.6 % (9.0-15.0); WHITE BLOOD COUNT (AUTO) 5.8 K/uL (4.8-10.8)
[2022-10-07 11:20] LABS: BILIRUBIN,URINE NEGATIVE (NEGATIVE); BLOOD, URINE TRACE (NEGATIVE); CLARITY/URINE CLEAR (CLEAR); COLOR,URINE YELLOW (YELLOW); GLUCOSE,URINE NEGATIVE (NEGATIVE); KETONES,URINE NEGATIVE (NEGATIVE); LEUKOCYTE ESTERASE ,URINE 1+ (NEGATIVE); NITRITE, URINE NEGATIVE (NEGATIVE); PH,URINE 5.5 (5.0-8.0); PROTEIN URINE NEGATIVE (NEGATIVE); UROBILINOGEN,URINE 0.2 (0.2-1.0)
[2022-10-07 11:25] LABS: BACTERIA,URINE RARE /HPF (None Seen)
[2022-10-07 11:30] LABS: ALANINE AMINOTRANSFERASE 19 U/L (12-78); ALBUMIN 2.9 g/dL (3.4-4.8); ANION GAP 10 (5-15); ASPARTATE AMINOTRANSFERASE 20 U/L (10-37); CALCIUM 8.3 mg/dL (8.4-11.0); CARBON DIOXIDE 22 mmol/L (23-29); CHLORIDE 109 mmol/L (98-107); CREATININE 0.84 mg/dL (0.55-1.30); GLUCOSE 93 mg/dL (74-106); POTASSIUM 3.9 mmol/L (3.5-5.1); SODIUM SERUM 141 mmol/L (136-145); TOTAL BILIRUBIN 0.5 mg/dL (0.0-1.0); TOTAL PROTEIN, SERUM 5.5 g/dL (6.4-8.3); UREA NITROGEN, BLOOD 11 mg/dL (8-21)
== END 2022-10-07 20:53 | disposition home or self-care (01) ==
LOC: SLB 09:43
PROVIDERS: ATTEND Internal Medicine
DX: N20.1 Calculus of ureter (principal); N13.30 Unspecified hydronephrosis
CPT/HCPCS: 36415; 80053; 81000; 82306; 83735; 83970; 85025; 87086

== ENCOUNTER 2022-11-15 10:07 | Outpatient (CLI) | payer OTHER, MEDICAID | END 2022-11-15 18:53 | disposition home or self-care (01) | LOC: SDS 10:07 | PROVIDERS: ATTEND Internal Medicine | DX: M79.641 Pain in right hand (principal) | CPT/HCPCS: 73030 ==

== ENCOUNTER 2023-02-28 20:08 | Inpatient (IN) | payer OTHER, MEDICAID ==
[~2023-02-28] VITALS: Ht 157.5 cm; Wt 65.8 kg
[2023-02-28 20:20] VITALS: BP_SYST 186; PULSE 94; RESP 19; TEMP 100.4; O2SAT 99
[2023-02-28] MEDS ORDERED: IBUPROFEN 800 MG TABLET PO ONE (20:45)
[2023-02-28 21:05] LABS: BASOPHILS % (AUTO) 0.6 % (0.0-2.0); EOSINOPHILS # (AUTO) 0.1 K/uL (0.0-0.4); HEMATOCRIT 30.3 % (36-48); HEMOGLOBIN 9.9 g/dL (12.0-16.0); LYMPHOCYTES # (AUTO) 1.1 K/uL (1.0-5.5); LYMPHOCYTES % (AUTO) 16.1 % (20.5-51.5); MEAN CORPUSCULAR HEMOGLOBIN 27 pg (27-31); MEAN CORPUSCULAR HGB CONC 33 % (32-36); MEAN CORPUSCULAR VOLUME 81 fL (79.0-98.0); MONOCYTES # (AUTO) 0.7 K/uL (0.0-1.0); MONOCYTES % (AUTO) 9.9 % (1.7-9.3); NEUTROPHILS # (AUTO) 5.1 K/uL (1.8-7.7); NEUTROPHILS % (AUTO) 72.4 % (40.0-70.0); PLATELET COUNT (AUTO) 274 K/uL (130-430); RED BLOOD CELL COUNT(AUTO) 3.76 MIL/uL (4.2-6.2); RED CELL DISTRIBUTION WIDTH 16.5 % (9.0-15.0); WHITE BLOOD COUNT (AUTO) 7.1 K/uL (4.8-10.8)
[2023-02-28] MEDS ORDERED: NACL 0.9% 1,000 ML IV ONE ×2 (21:15)
[2023-02-28 21:22] LABS: PROTHROMBIN TIME 10.2 SECS (9.5-12.5)
[2023-02-28 21:25] LABS: INFLUENZA TYPE A Negative (NEGATIVE); INFLUENZA TYPE B NEGATIVE (NEGATIVE)
[2023-02-28 21:51] LABS: ALANINE AMINOTRANSFERASE 32 U/L (12-78); ALBUMIN 3.1 g/dL (3.4-4.8); ANION GAP 8 (5-15); ASPARTATE AMINOTRANSFERASE 39 U/L (10-37); CARBON DIOXIDE 24 mmol/L (23-29); CHLORIDE 106 mmol/L (98-107); CREATININE 0.96 mg/dL (0.55-1.30); GLUCOSE 106 mg/dL (74-106); POTASSIUM 4.1 mmol/L (3.5-5.1); SODIUM SERUM 138 mmol/L (136-145); TOTAL BILIRUBIN 0.4 mg/dL (0.0-1.0); TOTAL PROTEIN, SERUM 6.2 g/dL (6.4-8.3); UREA NITROGEN, BLOOD 12 mg/dL (8-21)
[2023-02-28] MEDS ORDERED: DEXAMETHASONE SOD PHOSPHATE 4 MG/ML VIAL IVP ONE (23:30)
[2023-02-28] MEDS ORDERED: AZITHROMYCIN 500 MG in NS 250 ML IV ONE (23:30)
[2023-03-01 00:02] LABS: BILIRUBIN,URINE NEGATIVE (NEGATIVE); BLOOD, URINE 2+ (NEGATIVE); CLARITY/URINE CLEAR (CLEAR); COLOR,URINE YELLOW (YELLOW); GLUCOSE,URINE NEGATIVE (NEGATIVE); KETONES,URINE TRACE (NEGATIVE); LEUKOCYTE ESTERASE ,URINE 1+ (NEGATIVE); NITRITE, URINE NEGATIVE (NEGATIVE); PROTEIN URINE NEGATIVE (NEGATIVE); UROBILINOGEN,URINE 0.2 (0.2-1.0)
[2023-03-01 00:43] LABS: BACTERIA,URINE MODERATE /HPF (None Seen)
[2023-03-01] MEDS ORDERED: AZITHROMYCIN 500 MG/VIAL (ZITHROMAX) IV ONE (02:11)
[2023-03-01] MEDS ORDERED: DEXAMETHASONE SOD PHOSPHATE 4 MG/ML VIAL ONE (02:29)
[2023-03-01] MEDS: guaiFENesin/DEXTROMETHORPHAN 10 ML UDC PO PRN ×3 (02:46→22:47)
[2023-03-01] MEDS ORDERED: METO25TA6 PO (08:59)
[2023-03-01] MEDS ORDERED: ATOR40TA68 PO (08:59)
[2023-03-01 10:30] VITALS: BP_SYST 176; PULSE 94; RESP 19; TEMP 98.1; O2SAT 99
[2023-03-01 11:22] VITALS: BP_SYST 125; PULSE 65; RESP 16; TEMP 97; O2SAT 99
[2023-03-01] MEDS ORDERED: OMEPRAZOLE Non-Formulary 20 MG CAPSULE.DR PO SCH (12:30)
[2023-03-01] MEDS ORDERED: cloNIDine HCL 0.1 MG TABLET PO PRN (12:30)
[2023-03-01] MEDS ORDERED: NON-FORMULARY MEDICATION (Meclizine Hcl 25 MG) PO SCH (12:30)
[2023-03-01] MEDS ORDERED: lisinopriL 20 MG TABLET PO ONE (12:45)
[2023-03-01] MEDS ORDERED: CHOLECALCIFEROL (VITAMIN D3) 2,000 UNIT TABLET PO ONE (12:45)
[2023-03-01] MEDS ORDERED: METOPROLOL TARTRATE 25 MG TABLET PO ONE (12:45)
[2023-03-01] MEDS ORDERED: FUROSEMIDE 20 MG TABLET PO ONE (12:45)
[2023-03-01] MEDS ORDERED: MECLIZINE HCL 25 MG TABLET (ANITVERT) PO PRN (13:00)
[2023-03-01] MEDS ORDERED: PANTOPRAZOLE SODIUM 40 MG TAB PO ONE (13:00)
[2023-03-01 15:27] VITALS: BP_SYST 127; PULSE 64; RESP 16; TEMP 97.9; O2SAT 99
[2023-03-01 20:30] VITALS: BP_SYST 126; BP_SYST 137; PULSE 61; PULSE 62; RESP 20; TEMP 98.6; O2SAT 98
[2023-03-01] MEDS: METOPROLOL TARTRATE 25 MG TABLET PO SCH (20:33)
[2023-03-01] MEDS: lisinopriL 20 MG TABLET PO SCH (20:34)
[2023-03-02 00:30] VITALS: BP_SYST 137; PULSE 61; RESP 20; TEMP 97.1; O2SAT 98
[2023-03-02 07:50] LABS: BASOPHILS % (AUTO) 0.6 % (0.0-2.0); HEMATOCRIT 26.8 % (36-48); HEMOGLOBIN 8.7 g/dL (12.0-16.0); LYMPHOCYTES # (AUTO) 1.2 K/uL (1.0-5.5); LYMPHOCYTES % (AUTO) 20.7 % (20.5-51.5); MEAN CORPUSCULAR HEMOGLOBIN 26 pg (27-31); MEAN CORPUSCULAR HGB CONC 32 % (32-36); MEAN CORPUSCULAR VOLUME 80 fL (79.0-98.0); MONOCYTES % (AUTO) 18.1 % (1.7-9.3); NEUTROPHILS # (AUTO) 3.5 K/uL (1.8-7.7); NEUTROPHILS % (AUTO) 60.6 % (40.0-70.0); PLATELET COUNT (AUTO) 222 K/uL (130-430); RED BLOOD CELL COUNT(AUTO) 3.35 MIL/uL (4.2-6.2); RED CELL DISTRIBUTION WIDTH 16.2 % (9.0-15.0); WHITE BLOOD COUNT (AUTO) 5.7 K/uL (4.8-10.8)
[2023-03-02 08:00] VITALS: BP_SYST 136; PULSE 64; RESP 20; TEMP 97.6; O2SAT 99
[2023-03-02 08:06] LABS: ALANINE AMINOTRANSFERASE 27 U/L (12-78); ALBUMIN 2.5 g/dL (3.4-4.8); ANION GAP 11 (5-15); ASPARTATE AMINOTRANSFERASE 23 U/L (10-37); CALCIUM 7.9 mg/dL (8.4-11.0); CARBON DIOXIDE 21 mmol/L (23-29); CHLORIDE 111 mmol/L (98-107); CREATININE 0.84 mg/dL (0.55-1.30); GLUCOSE 92 mg/dL (74-106); PHOSPHORUS 3.4 mg/dL (2.7-4.5); POTASSIUM 3.8 mmol/L (3.5-5.1); SODIUM SERUM 143 mmol/L (136-145); TOTAL BILIRUBIN 0.3 mg/dL (0.0-1.0); TOTAL PROTEIN, SERUM 5.2 g/dL (6.4-8.3); UREA NITROGEN, BLOOD 16 mg/dL (8-21)
[2023-03-02] MEDS ORDERED: FUROSEMIDE 20 MG TABLET PO SCH (09:00)
[2023-03-02] MEDS ORDERED: PANTOPRAZOLE SODIUM 40 MG TAB PO SCH (09:00)
[2023-03-02] MEDS ORDERED: CHOLECALCIFEROL (VITAMIN D3) 2,000 UNIT TABLET PO SCH (09:00)
[2023-03-02] MEDS ORDERED: ASPIRIN 81 MG TAB.CHEW PO SCH (09:00)
[2023-03-02] MEDS ORDERED: ATORVASTATIN 20 MG TABLET PO SCH (09:00)
[2023-03-02] MEDS ORDERED: levoFLOXacin 250 MG TABLET PO SCH (10:00)
[2023-03-02] MEDS: CYANOCOBALAMIN (VITAMIN B-12) 1,000 MCG TABLET PO SCH ×2 (10:15→10:17)
[2023-03-02] MEDS: lisinopriL 20 MG TABLET PO SCH (10:17)
[2023-03-02] MEDS: METOPROLOL TARTRATE 25 MG TABLET PO SCH (10:22)
[2023-03-02] MEDS: guaiFENesin/DEXTROMETHORPHAN 10 ML UDC PO PRN (10:32)
[2023-03-02 12:03] VITALS: BP_SYST 131; PULSE 71; RESP 18; TEMP 97.2; O2SAT 98
[2023-03-02] MEDS ORDERED: NIRM1TAB PO (13:22)
[2023-03-02] MEDS ORDERED: GUAI10LI14 PO (13:25)
[2023-03-02 13:47] VITALS: BP_SYST 136; PULSE 64; RESP 20; TEMP 97.6; O2SAT 99
== END 2023-03-02 15:20 | disposition home or self-care (01) | DRG 178 ==
LOC: SED 20:08 → STU 23:21
PROVIDERS: ADMIT Internal Medicine; ATTEND Internal Medicine
DX: U07.1 COVID-19 (principal); E44.1 Mild protein-calorie malnutrition; I10 Essential (primary) hypertension; K21.9 Gastro-esophageal reflux disease without esophagitis; K80.20 Calculus of gallbladder without cholecystitis without obstruction; K76.0 Fatty (change of) liver, not elsewhere classified; K44.9 Diaphragmatic hernia without obstruction or gangrene; Z53.29 Procedure and treatment not carried out because of patient's decision for other reasons; I25.10 Atherosclerotic heart disease of native coronary artery without angina pectoris; E78.5 Hyperlipidemia, unspecified; Z88.1 Allergy status to other antibiotic agents; Z79.899 Other long term (current) drug therapy; Z79.82 Long term (current) use of aspirin; Z68.29 Body mass index [BMI] 29.0-29.9, adult
CPT/HCPCS: 36415; 71045; 80053; 81000; 81001; 81015; 83605; 83735; 84100; 84484; 85025; 85610-TC; 87040; 87086; 93005; 96360; 99285; G0378; J0456; J1100; J7050

== ENCOUNTER 2023-03-19 13:23 | Outpatient (CLI) | payer OTHER, MEDICAID ==
[~2023-03-19 13:23] MED LIST changes: +ATOR40TA68 PO; +GUAI10LI14 PO; +NIRM1TAB PO
[2023-03-19 15:09] LABS: BILIRUBIN,URINE NEGATIVE (NEGATIVE); COLOR,URINE YELLOW (YELLOW); GLUCOSE,URINE NEGATIVE (NEGATIVE); KETONES,URINE NEGATIVE (NEGATIVE); LEUKOCYTE ESTERASE ,URINE 1+ (NEGATIVE); NITRITE, URINE POSITIVE (NEGATIVE); PROTEIN URINE NEGATIVE (NEGATIVE); UROBILINOGEN,URINE 0.2 (0.2-1.0)
[2023-03-19 15:13] LABS: BLOOD, URINE TRACE (NEGATIVE); CLARITY/URINE SLIGHTLY HAZY (CLEAR)
[2023-03-19 15:17] LABS: BASOPHILS # (AUTO) 0.1 K/uL (0.0-0.2); BASOPHILS % (AUTO) 0.8 % (0.0-2.0); EOSINOPHILS # (AUTO) 0.1 K/uL (0.0-0.4); EOSINOPHILS % (AUTO) 1.9 % (0.0-4.0); HEMATOCRIT 30.1 % (36-48); HEMOGLOBIN 9.6 g/dL (12.0-16.0); LYMPHOCYTES # (AUTO) 1.6 K/uL (1.0-5.5); LYMPHOCYTES % (AUTO) 26.8 % (20.5-51.5); MEAN CORPUSCULAR HEMOGLOBIN 26 pg (27-31); MEAN CORPUSCULAR HGB CONC 32 % (32-36); MEAN CORPUSCULAR VOLUME 82 fL (79.0-98.0); MONOCYTES # (AUTO) 0.4 K/uL (0.0-1.0); MONOCYTES % (AUTO) 6.7 % (1.7-9.3); NEUTROPHILS # (AUTO) 3.9 K/uL (1.8-7.7); NEUTROPHILS % (AUTO) 63.8 % (40.0-70.0); PLATELET COUNT (AUTO) 300 K/uL (130-430); RED CELL DISTRIBUTION WIDTH 18.4 % (9.0-15.0); WHITE BLOOD COUNT (AUTO) 6.1 K/uL (4.8-10.8)
[2023-03-19 15:26] LABS: ALANINE AMINOTRANSFERASE 23 U/L (12-78); ALBUMIN 2.9 g/dL (3.4-4.8); ANION GAP 11 (5-15); ASPARTATE AMINOTRANSFERASE 21 U/L (10-37); CALCIUM 8.5 mg/dL (8.4-11.0); CARBON DIOXIDE 23 mmol/L (23-29); CHLORIDE 111 mmol/L (98-107); CREATININE 0.75 mg/dL (0.55-1.30); GLUCOSE 89 mg/dL (74-106); POTASSIUM 3.8 mmol/L (3.5-5.1); SODIUM SERUM 145 mmol/L (136-145); TOTAL BILIRUBIN 0.5 mg/dL (0.0-1.0); TOTAL PROTEIN, SERUM 5.9 g/dL (6.4-8.3); UREA NITROGEN, BLOOD 10 mg/dL (8-21)
[2023-03-19 15:28] LABS: BACTERIA,URINE MANY /HPF (None Seen)
== END 2023-03-19 18:21 | disposition home or self-care (01) ==
LOC: SLB 13:23
PROVIDERS: ATTEND Urology
DX: N13.2 Hydronephrosis with renal and ureteral calculous obstruction (principal)
CPT/HCPCS: 36415; 80053; 81000; 81001; 81015; 85025; 87086

== ENCOUNTER 2023-09-09 11:01 | Outpatient (CLI) | payer OTHER, MEDICAID ==
[2023-09-09 11:22] LABS: BASOPHILS # (AUTO) 0.1 K/uL (0.0-0.2); BASOPHILS % (AUTO) 0.7 % (0.0-2.0); EOSINOPHILS # (AUTO) 0.2 K/uL (0.0-0.4); EOSINOPHILS % (AUTO) 2.7 % (0.0-4.0); HEMATOCRIT 39.7 % (36-48); HEMOGLOBIN 12.8 g/dL (12.0-16.0); LYMPHOCYTES # (AUTO) 2.1 K/uL (1.0-5.5); MEAN CORPUSCULAR HEMOGLOBIN 29 pg (27-31); MEAN CORPUSCULAR HGB CONC 32 % (32-36); MEAN CORPUSCULAR VOLUME 91 fL (79.0-98.0); MONOCYTES # (AUTO) 0.6 K/uL (0.0-1.0); MONOCYTES % (AUTO) 8.7 % (1.7-9.3); NEUTROPHILS # (AUTO) 4.4 K/uL (1.8-7.7); NEUTROPHILS % (AUTO) 59.9 % (40.0-70.0); PLATELET COUNT (AUTO) 226 K/uL (130-430); RED BLOOD CELL COUNT(AUTO) 4.36 MIL/uL (4.2-6.2); WHITE BLOOD COUNT (AUTO) 7.3 K/uL (4.8-10.8)
[2023-09-09 11:44] LABS: ALANINE AMINOTRANSFERASE 22 U/L (12-78); ANION GAP 8 (5-15); ASPARTATE AMINOTRANSFERASE 27 U/L (10-37); CALCIUM 8.5 mg/dL (8.4-11.0); CARBON DIOXIDE 25 mmol/L (23-29); CHLORIDE 108 mmol/L (98-107); CREATININE 0.93 mg/dL (0.55-1.30); GLUCOSE 92 mg/dL (74-106); POTASSIUM 3.4 mmol/L (3.5-5.1); SODIUM SERUM 141 mmol/L (136-145); TOTAL BILIRUBIN 0.5 mg/dL (0.0-1.0); TOTAL PROTEIN, SERUM 6.3 g/dL (6.4-8.3); UREA NITROGEN, BLOOD 14 mg/dL (8-21)
== END 2023-09-09 21:17 | disposition home or self-care (01) ==
LOC: SLB 11:01
PROVIDERS: ATTEND Urology
DX: Z01.818 Encounter for other preprocedural examination (principal); N20.0 Calculus of kidney; N13.30 Unspecified hydronephrosis; I49.1 Atrial premature depolarization; I44.7 Left bundle-branch block, unspecified
CPT/HCPCS: 36415; 80053; 85025; 93005